=== PATIENT | female | born 1945 | race Caucasian/White ===

== ENCOUNTER → 2018-04-06 15:42 | Outpatient (POV) | payer MEDICARE, SELFPAY | PROVIDERS: Visit Provider Dermatology | DX: Z00.00 Encounter for general adult medical examination without abnormal findings (principal) ==

== ENCOUNTER → 2018-04-06 16:41 | Outpatient (CLI) | payer MEDICARE, SELFPAY ==
--- NOTE | 2018-04-06 16:56 | MM_ITS ---
MM Dig screening mamm BI w/CAD ORDERING PHYSICIAN : Cory Beltran MD PATIENT AGE: 73 years GENDER: Female COMPARISON: February 2017, November 2015, October 2014, November 2013, INDICATION: ITS.REASON: SCREENING. Does taking female hormones. Nonspecific. No new complaints. Noncontributory family history. TECHNIQUE: Standard CC and MLO images were obtained. R2 CAD reviewed. FINDINGS: Moderate residual fibroglandular elements. Stable mild asymmetry. No suspicious or dominant mass. No suspicious calcification. RIGHT BREAST:Stable appearance follow-up in one year. LEFT BREAST:No new findings of significant concern Minor subtle nodularity the deep lateral breast cc view is similar to 2014/2012 mammogram studies. Follow-up in one year recommended IMPRESSION: . No new findings of significant concern.Stable mammogram Bilateral follow-up in one year recommended and encouraged BI-RADS Category: 2 Benign Finding(s) RECOMMENDED FOLLOW-UP: 1YR 1 YEAR FOLLOW-UP (A letter has been sent to the patient regarding results of the study.)
== END ==
PROVIDERS: PCP Family Medicine; Visit Provider Family Medicine
DX: Z12.31 Encounter for screening mammogram for malignant neoplasm of breast (principal)
CPT/HCPCS: 77067

== ENCOUNTER → 2019-04-11 13:07 | Outpatient (CLI) | payer MEDICARE, SELFPAY ==
--- NOTE | 2019-04-11 13:18 | MM_ITS ---
PROCEDURE: MM DIG SCREENING MAMM BI W/CAD CLINICAL INDICATION: SCREENING There is no personal or family history of breast cancer COMPARISON: [facility] DIG MAMM-SCREEN ISAIAH from 11/14/2015 [facility] DIG MAMM-SCREEN ISAIAH W/CAD from 03/05/2017 [facility] MM Dig screening mamm BI w/CAD from 04/06/2018 TECHNIQUE: Standard CC and MLO images were obtained. R2 CAD reviewed. FINDINGS: Scattered diffuse fibroglandular densities are seen throughout both breast. The findings are fairly symmetrical and bilateral. There is no suspicious lesion in either breast and no suspicious microcalcifications. IMPRESSION: Fibrofatty parenchyma with no suspicious lesions seen BI-RAD Category: 1 Negative FOLLOW-UP: 1YR 1 Year Follow-up (A letter has been sent to the patient regarding results of the study.) Dictated by: Dr. Jose Paez MD 04/11/2019 16:[address] Jose Paez MD in [place] 04/11/2019 16:01
== END ==
PROVIDERS: PCP Family Medicine; Visit Provider Family Medicine
DX: Z12.31 Encounter for screening mammogram for malignant neoplasm of breast (principal)
CPT/HCPCS: 77067

== ENCOUNTER → 2019-06-27 13:06 | Outpatient (CLI) | payer MEDICARE, SELFPAY ==
--- NOTE | 2019-06-27 13:15 | XR_ITS ---
PROCEDURE: XR TIBIA FIBULA RT 2V CLINICAL INDICATION: rt leg pain COMPARISON: No exams were available for comparison FINDINGS: There is no acute fracture dislocation or destructive lesion. Lateral compartment osteoarthritis is seen at the knee joint space and there is tibiotalar osteoarthritis. IMPRESSION: No acute findings. Dictated by: Martín Dominique 06/27/2019 16:22 Electronically signed by Martín Dominique in [place] 06/27/2019 16:22
--- NOTE | 2019-06-27 13:15 | XR_ITS ---
PROCEDURE: XR KNEE RT 4V CLINICAL INDICATION: rt leg pain COMPARISON: [id number] KNEE-4 OR 5 VIEWS-RT from 09/16/2016 FINDINGS: No fracture or dislocation. No lytic or blastic change. There is normal mineralization. There is lateral and patellofemoral osteoarthritis with a small suprapatellar joint effusion. Other findings:None. IMPRESSION: Osteoarthritis with joint effusion. Dictated by: Martín Dominique 06/27/2019 16:57 Electronically signed by Martín Dominique in [place] 06/27/2019 16:57
== END ==
PROVIDERS: PCP Family Medicine; Visit Provider Orthopaedic Surgery
DX: M79.661 Pain in right lower leg (principal); M25.561 Pain in right knee
CPT/HCPCS: 73564; 73590

== ENCOUNTER → 2020-10-17 12:34 | Outpatient (CLI) | payer MEDICARE, SELFPAY ==
--- NOTE | 2020-10-17 12:36 | MM_ITS ---
PROCEDURE INFORMATION: Exam: MG Screening 3D Mammography Exam date and time: 10/17/2020 12:36 PM Age: 75 years old Clinical indication: Encounter for screening mammogram for malignant neoplasm of breast TECHNIQUE: Imaging protocol: Screening tomosynthesis and 2D mammography including computer-aided detection (CAD) when performed. COMPARISON: 1. MG MM DIG SCREENING MAMM BI W/CAD 04/11/2019 1:27 PM 2. MG [facility] MM Dig screening mamm BI w/CAD 04/06/2018 4:59 PM FINDINGS: MAMMOGRAPHY: Breast composition: The breast tissue is heterogeneously dense, which may obscure small masses. Mass: Questionable 0.5 cm mass in the middle third of right central breast better seen in the MLO projection Architectural distortion: None. Calcifications: No suspicious calcifications. Asymmetric density: None. Skin thickening: None. Axillary adenopathy: None. IMPRESSION: Patient to be recalled for spot compression views of the right breast in the CC and MLO projections and right breast ultrasound for further evaluation of a right breast mass. ASSESSMENT: BI-RADS Category 0: Incomplete- Need Additional Imaging Evaluation and/or Prior Mammograms for Comparison
--- NOTE | 2020-10-17 12:42 | XR_ITS ---
PROCEDURE: XR CHEST 2V CLINICAL HISTORY: COUGH COMPARISON: No exams were available for comparison FINDINGS: Mild cardiomegaly without failure. The lungs are clear without infiltrates, suspicious nodules, or pleural effusions. There is a small hiatal hernia. No acute bony findings. IMPRESSION: Mild cardiomegaly otherwise negative Dictated by: Pepito Bruner MD 10/17/2020 13:35 Pepito Bruner MD in [place] 10/17/2020 13:35
== END ==
PROVIDERS: PCP Family Medicine; Visit Provider Family Medicine
DX: Z12.31 Encounter for screening mammogram for malignant neoplasm of breast (principal); R05 Cough
CPT/HCPCS: 71046; 77063; 77067

== ENCOUNTER 2020-10-17 13:42 | Outpatient (RCR) | payer MEDICARE, SELFPAY | END 2020-10-17 14:10 | disposition home or self-care (01) | LOC: PT 13:42 | PROVIDERS: Visit Provider Orthopaedic Surgery | DX: M25.561 Pain in right knee (principal) | CPT/HCPCS: 97760 ==

== ENCOUNTER → 2020-11-01 13:41 | Outpatient (CLI) | payer MEDICARE, SELFPAY ==
--- NOTE | 2020-11-01 13:43 | MM_ITS ---
PROCEDURE: MM DIG MAMM DX UNILAT RT CAD Digital Breast Tomosynthesis Included Right breast ultrasound complete with axilla CLINICAL INDICATION: ABN MAMM Breast lesion follow up COMPARISON: MG [facility] DIG MAMM-SCREEN ISAIAH W/CAD from 03/05/2017 [facility] MM Dig screening mamm BI w/CAD from 04/06/2018 MG MM DIG SCREENING MAMM BI W/CAD from 04/11/2019 MG MM DIG SCREENING MAMM BI W/CAD from 10/17/2020 US US BREAST RT COMPLETE from 11/01/2020 TECHNIQUE: Problem solving views of the right breast along with right breast ultrasound FINDINGS: On the MLO view the area of concern appears to compress out. On the CC view there is a small irregular opacity in the central aspect of the right breast posteriorly measuring approximately 3 mm. This could be due to overlapping fibroglandular tissue when comparing to the tomographic images. Right breast ultrasound: At 1 o'clock there is a complex hypoechoic nodule. This is fairly superficial in the mid aspect of the breast. There is however posterior acoustical shadowing. Cannot exclude the possibility of a solid hypoechoic nodule at this region. IMPRESSION: Hypoechoic nodule at 1 o'clock with posterior acoustical shadowing. Suggest ultrasound-guided FNA/core biopsy. The nodules too superficial for mammotome biopsy. Indeterminate findings with a 3 mm somewhat irregular opacity in the central aspect of the right breast possibly due to overlapping fibroglandular tissue. Additional images will be obtained at the time of the FNA. BI-RAD Category: 4 Suspicious Abnormality-Biopsy Considered FOLLOW-UP: BIO Biopsy Recommended (A letter has been sent to the patient regarding results of the study.) Dictated by: Pepito Bruner MD 11/14/2020 09:42 Ppeito Bruner MD in [place] 11/14/2020 09:42
== END ==
PROVIDERS: PCP Family Medicine; Visit Provider Nurse Practitioner Family
DX: R92.8 Other abnormal and inconclusive findings on diagnostic imaging of breast (principal)
CPT/HCPCS: 76641; 77061; 77065; G0279

== ENCOUNTER → 2020-11-08 15:38 | Outpatient (CLI) | payer MEDICARE, SELFPAY | PROVIDERS: PCP Family Medicine; Visit Provider Internal Medicine Cardiovascular Disease | DX: R42 Dizziness and giddiness (principal) | CPT/HCPCS: 93225 ==

== ENCOUNTER → 2020-11-21 13:40 | Outpatient (CLI) | payer MEDICARE, SELFPAY ==
--- NOTE | 2020-11-21 13:41 | XR_ITS ---
PROCEDURE: XR HIP RT 2-3V W/PELVIS CLINICAL INDICATION: right hip pain COMPARISON: No exams were available for comparison FINDINGS: [id number] osteoarthritic changes are present involving the right with decrease in the joint space. No acute fracture or dislocation. Small lucency is noted along the mid aspect of the greater trochanter laterally nonspecific. Mild osteoarthritic changes also noted of the left hip. There are degenerative changes in the lower lumbar spine IMPRESSION: [id number] osteoarthritic changes the right with a nonspecific lucency in the mid aspect of the greater trochanter laterally. Consider 3 month follow-up to confirm stability Dictated by: Pepito Bruner MD 11/21/2020 14:48 Pepito Bruner MD in [place] 11/21/2020 14:48
--- NOTE | 2020-11-21 13:41 | XR_ITS ---
PROCEDURE: XR KNEE RT 4V CLINICAL INDICATION: right knee pain; weightbearing COMPARISON: CR [id number] KNEE-4 OR 5 VIEWS-RT from 09/16/2016 CR XR KNEE RT 4V from 06/27/2019 FINDINGS: No fracture or dislocation. No lytic or blastic change. There is normal mineralization. There are moderate to severe osteoarthritic changes of the lateral compartment which appears somewhat worse compared to 06/27/2019 with slight decrease in the joint space from the previous study. There are mild osteoarthritic changes of the patellofemoral joint and there may be small suprapatellar effusion. Other findings:Minimal osteosclerosis in the epiphysis centrally IMPRESSION: Moderate to severe osteoarthritis of the right knee Dictated by: Pepito Bruner MD 11/21/2020 14:46 Pepito Bruner MD in [place] 11/21/2020 14:46
== END ==
PROVIDERS: PCP Family Medicine; Visit Provider Nurse Practitioner Family
DX: M25.551 Pain in right hip (principal); M25.561 Pain in right knee; R05 Cough
CPT/HCPCS: 73502; 73564; 94060

== ENCOUNTER → 2020-12-05 07:56 | Outpatient (CLI) | payer MEDICARE, SELFPAY ==
--- NOTE | 2020-12-05 07:57 | CA_ITS ---
APPROVED REPORT EXAM: Comprehensive 2D, Doppler, and color-flow Echocardiogram Sweat Band Separator: Cassi Muro CRT Ht: 5 ft 7 in Wt: 230lbs BSA: 2.15 BP: 140/64 mmHg Indications: CP Pt unable to tolerate more images, uncooperative 2D Dimensions LVOT 1.98 cm (M/F) 1.5-2.5 M-Mode Dimensions RVDd 2.58 cm (0.9-2.6) LA Diam 2.80 cm (1.9-4.0) LVDd 4.05 cm (3.5-5.7) Ao Diam 3.37 cm (2.0-3.7) LVDs 2.83 cm (3.5-5.7) IVSd 1.72 cm (0.6-1.1) PWd 0.90 cm (0.6-1.1) EF (Teich) 58.00% FS 30.10% EDV (Teich) 72.10 mL ESV (Teich) 30.30 mL LV Diastology E Decel Time 193.00 (160-240 msec) E/A Ratio 1.17 Aortic Valve AO Peak GR. 6.20 mmHg Mitral Valve MV E Max Hang. 78.00 (40-130 cm/s) MV A Velocity 66.00 (40-130 cm/s) E/A Ratio 1.17 MV Decel. Time 193.00 (160-240 ms) MV PHT 57.00 ms Pulmonary Valve PV Peak Velocity 90.00 (50-150 cm/s) Tricuspid Valve TR P. Velocity 258.00 cm/s Left Ventricle Left atrium is normal size, left ventricle is normal size, left ventricular wall thickness is upper limit of the normal, there is preserved left ventricular systolic function, visually estimated ejection fraction 55% with no regional wall motion abnormality, diastolic parameters are inconclusive. Right Ventricle Right atrium and right ventricle are normal size and contractility. Aortic Valve Aortic valve is minimally thickened and fibrosed, there is no aortic stenosis or aortic insufficiency. Mitral Valve Mitral valve is grossly normal, there is trace mitral regurgitation. Tricuspid Valve Tricuspid grossly normal, there is trace tricuspid regurgitation, calculated right ventricular systolic pressure is within normal range. Pulmonic Valve Pulmonic valve is poorly visualized. Great Vessels Aortic root is normal size. Pericardium No significant pericardial effusion noted. Conclusion 1. Normal left ventricular size, preserved left ventricular systolic function, visually estimated ejection fraction 55% with no regional wall motion abnormality, diastolic parameters are inconclusive. 2. Trace mitral and tricuspid regurgitation. 3. No significant pericardial effusion noted. Electronically signed by : Hamzah Jimenez, 12/07/2020 10:27:05
--- NOTE | 2020-12-05 09:04 | CT_ITS ---
PROCEDURE: CT CHEST WO CON CLINICAL INDICATION: cough Productive cough x several weeks No prior COMPARISON: CT NECKW CT SOFT TISSUE NECK W/CONTRAST from 10/29/2016 TECHNIQUE: Axial images obtained with sagittal and coronal reformats. All CT scans at the facility use one or more dose reduction, viz: automated exposure control, ma/kV adjustment per patient size (including targeted exams where dose is matched to indication, i.e. head), or iterative reconstruction technique. FINDINGS: HEART AND MEDIASTINAL STRUCTURES: The left lobe of the thyroid gland is enlarged with some heterogeneous density and central coarse calcification. The left lobe measures 4.4 cm cephalad caudad and 2.2 cm transverse. The trachea is slightly deviated toward the right. There are coronary artery calcifications. There is a 15 mm soft tissue density along the superior aspect of the left atrium on the left. This may represent an overlying lymph node. Follow-up may confirm stability. There is a moderate-sized hiatal hernia. LUNGS AND PLEURAL SPACES: Minimal atelectatic or fibrotic changes are present in the right lung base posteriorly and medially. A well-circumscribed 9 mm nodular opacity is present in the right lung base along the hemidiaphragm and may be due to small lymph node along the pleura. No lobar consolidation or collapse is evident. No areas of pneumonia parent. BONY STRUCTURES: Mild thoracic scoliosis convex left with degenerative changes in the thoracic spine. UPPER ABDOMEN: Unremarkable. ADDITIONAL FINDINGS: No other significant abnormalities. IMPRESSION: 1. Enlarged left lobe of the thyroid gland not significantly changed from 10/29/2016. 2. Area of nodularity along the left atrium superiorly on the left and may represent a variation of a prominent atrial appendage. Follow-up may confirm stability. 3. No acute finding. 4. Moderate-sized hiatal hernia Dictated by: Pepito Bruner MD 12/06/2020 08:31 Pepito Bruner MD in [place] 12/06/2020 08:31
--- NOTE | 2020-12-05 09:08 | US_ITS ---
PROCEDURE: US FNA BREAST CLINICAL INDICATION: ABN MAMM Right breast nodule COMPARISON: US US BREAST RT COMPLETE from 11/01/2020 MG MM DIG MAMM DX UNILAT RT CAD from 12/05/2020 FINDINGS: Following obtaining informed consent and time-out procedure with ultrasound guidance under aseptic conditions and local anesthesia with 1 percent buffered lidocaine 21 gauge needle was inserted into the subcutaneous nodule in the 1 o'clock region of the right breast. Nodule did aspirate nearly completely. The patient tolerated the procedure well without evidence of immediate complication. Cytology: Atypical, atypical ductal groups. Additional sampling recommended by the pathologist. IMPRESSION: Uneventful ultrasound-guided FNA of the right breast at the 1 o'clock position. The nodule did aspirate. However, the cytology was atypical and the pathologist recommended additional sampling.. The nodule however did aspirate nearly completely and would not be visible at this time. Suggest 3 month sonographic follow-up. If the nodule recurs then additional sampling could be performed. Dictated by: Pepito Bruner MD 12/17/2020 13:23 Pepito Bruner MD in [place] 12/17/2020 13:23
--- NOTE | 2020-12-05 10:21 | MM_ITS ---
PROCEDURE: MM DIG MAMM DX UNILAT RT CAD CLINICAL INDICATION: PRE BX IMAGES PER DR BRUNER COMPARISON: MG MM DIG SCREENING MAMM BI W/CAD from 04/11/2019 MG MM DIG SCREENING MAMM BI W/CAD from 10/17/2020 MG MM DIG MAMM DX UNILAT RT CAD from 11/01/2020 US US BREAST RT COMPLETE from 11/01/2020 US US FNA BREAST from 12/05/2020 TECHNIQUE: Problem solving views performed FINDINGS: Average fibroglandular tissue. The small irregular opacity in the right breast as seen on the CC view is not re duplicated on the spot compression and rolled views nor is it identified on the mL view consistent with overlapping fibroglandular tissue. IMPRESSION: Small asymmetry appears to represent fibroglandular tissue. Continued follow-up suggested. BI-RAD Category: 3 Probably Benign Finding Short Term Follow-Up FOLLOW-UP: 6M 6 Month Follow-up This BI-RADS category pertains to the asymmetric density. Please see ultrasound-guided fine needle aspiration report for further follow-up recommendations regarding the nodule that was biopsied by ultrasound guidance. (A letter has been sent to the patient regarding results of the study.) Dictated by: Pepito Bruner MD 12/12/2020 08:50 Pepito Bruner MD in [place] 12/12/2020 08:50
== END ==
PROVIDERS: PCP Family Medicine; Visit Provider Nurse Practitioner Family
DX: I45.10 Unspecified right bundle-branch block (principal); R05 Cough; R06.00 Dyspnea, unspecified; R07.89 Other chest pain; R42 Dizziness and giddiness; R94.31 Abnormal electrocardiogram [ECG] [EKG]; R92.8 Other abnormal and inconclusive findings on diagnostic imaging of breast
CPT/HCPCS: 10005; 71250; 77061; 77065; 88173; 93306; G0279

== ENCOUNTER → 2020-12-12 14:27 | Outpatient (CLI) | payer MEDICARE, SELFPAY | PROVIDERS: Visit Provider Internal Medicine Gastroenterology | DX: Z01.812 Encounter for preprocedural laboratory examination (principal); Z20.822 Contact with and (suspected) exposure to COVID-19; Z13.810 Encounter for screening for upper gastrointestinal disorder; Z12.11 Encounter for screening for malignant neoplasm of colon | CPT/HCPCS: U0003 ==

== ENCOUNTER 2020-12-14 10:48 | Day surgery (SDC) | payer MEDICARE, SELFPAY ==
[2020-12-11 13:35] VITALS: BMI 36.0
[2020-12-14 11:19] VITALS: BP 104/64; PULSE 85; RESP 20; TEMP 37.6; O2SAT 97
--- NOTE | 2020-12-14 12:38 | HMH.ANESCL ---
[facility] Anesthesia Checklist - Patient Identification Patient Identification: Arm Band - Structural Data Admitted From: Home Planned Operative Procedure/s: egd/colonoscopy Consent for Planned Operative Procedure(s) Verified: Yes Verified Documents: Surgical Consent, History and Physical - NPO Status Verified Time NPO: 00:00 - Additional verifications Anesthesia Reactions: No - Airway Assessment C-Spine Mobility Assessed: Yes (mp2) TMJ Mobility Assessed: Yes Dentition: Good Dentition - Neurological Assessment Level of Consciousness: Awake, Alert - Anesthesia Plan Anesthesia Risk discussed: Yes Anesthesia Plan: Verified ASA Class: III Anesthesia Type: MAC [facility] History I have reviewed the patient's past medical history: Yes Medical History: Reports:: Anxiety, Hyperlipidemia, Hypertension Denies:: Cancer, Diabetes Mellitus Type 1, Diabetes Mellitus Type 2, Internal Pacemaker, MRSA, Seizures *Have you ever received a pneumonia vaccine?: No *Have you received a flu vaccine this season?: No Anesthesia experience/problems:: nac Other Surgeries: Yes: Other. No: Pacemaker Amputation: No Fractures: No - *Social History Smoking Status: Never smoker Alcohol Intake: never Substance Use Type: denies use *Occupational Status:: retired Housing: house *Travel in the last 8 weeks: None - Psychiatric History Pschychiatric History:: Reports:: Anxiety Family Hx:: Coronary Artery Disease, Hypertension
--- NOTE | 2020-12-14 12:57 | P.PCN_ITS ---
[facility] Procedure Note Procedure Note:: Upper Endoscopy Procedure Report: Esophagogastroduodenoscopy with cold biopsies Endoscopost: Darell Martinez II, MD Referring Physician: JUANY Latham Date of Procedure: 12/14/2020 Equipment: Olympus GIF 190 standard upper endoscope Sedation: MAC sedation Indications: Mrs. Katz is a 75-year-old female who is here for diagnostic panendoscopy. The patient does state that she was having coughing and spitting up earlier this year that began in July or August. She was having some symptoms of GERD and dyspepsia. She was having gnawing in the mid upper abdomen. The patient reports no dysphagia or weight loss. Her symptoms improved with omeprazole. This is her first upper endoscopy. Her recent chemistries were normal. Procedure: Prior to the procedure, a history and physical exam was performed, and patient's medications and allergies were reviewed. The risks, benefits and alternatives of the sedation and procedure were discussed with the patient. All questions were answered and informed consent was obtained. The patient was brought to the procedure room. Patient identification and proposed procedure were verified by the physician and the nurse. The patient was placed in a left lateral decubitus position and the scope was passed under direct vision. Throughout the procedure , the patient's blood pressure, pulse, and oxygen saturations were monitored continuously. The upper GI endoscopy was accomplished without difficulty. The patient tolerated the procedure well. Findings: The scope was passed directly into the upper esophagus and advanced to the third portion of the duodenum. The post bulbar duodenum and duodenal bulb were normal with normal mucosa and conniventes. The scope was withdrawn through a normal duodenal bulb and pylorus into the stomach. There was some very mild chronic gastritis of the body and fundus. Cold biopsies were taken along the lesser curvature. The scope was retroflexed and there was a large 6 to 7 cm hiatal hernia. 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 The diaphragmatic hiatus was at 41 cm. The gastroesophageal junction and Z-line were at 34 cm. The scope was then withdrawn into the esophagus. There was no evidence of reflux esophagitis. Biopsies were obtained at the GE junction. There were tertiary contractions and evidence of moderate esophageal dysmotility. The remainder of the esophageal mucosa was normal. Impression: 1. Nonerosive GERD with moderate esophageal dysmotility and large 6 to 7 cm hiatal hernia 2. Mild chronic gastritis?rule out H. pylori Plan: I will follow-up the biopsies. I would like to see her hemoglobin/hematocrit and iron studies to make sure that she does not have iron deficiency anemia from Conrelio's erosions. I do feel that she has chronic GERD which resulted in some of her symptoms of coughing. She is much improved with omeprazole. I will proceed with colonoscopy.
--- NOTE | 2020-12-14 13:20 | HMH.PROC ---
[facility] Procedure Note Procedure Note:: Colonoscopy Procedure Report: Colonoscopy with cold snare polypectomy Endoscopist: Darell Martinez II, MD Referring physician: JUANY Latham Date of Procedure: December 14, 2020 Equipment: Olympus 190 variable stiffness pediatric colonoscope Sedation: MAC sedation Indication: Mrs. Katz is a 75-year-old female who is here for screening/surveillance colonoscopy. She did have a colonoscopy in 2011 and had a single polyp removed. She did have a colonoscopy with ct nearly 20 years ago. She reports no abdominal pain, weight loss, change in her bowel habits or rectal bleeding. She does have some intermittent diarrhea. She reports no family history of colon cancer. Procedure: Prior to the procedure, a history and physical exam was performed, and patient's medications and allergies were reviewed. The risks, benefits and alternatives of the sedation and procedure were discussed with the patient. All questions were answered and informed consent was obtained. The patient was brought to the procedure room. Patient identification and proposed procedure were verified by the physician and the nurse. The patient was placed in a left lateral decubitus position and the scope was passed under direct vision. Throughout the procedure, the patient's blood pressure, pulse, and oxygen saturations were monitored continuously. The colonoscopy was accomplished without difficulty. The patient tolerated the procedure well. Findings: On digital rectal examination there was normal rectal tone. There were no external hemorrhoids. The colonoscope was introduced through the anal canal to the rectum and advanced to the cecum. The ileocecal valve and appendiceal orifice were identified. The scope was advanced a short distance into the ileum which appeared grossly normal. The scope was then withdrawn into the colon. The cecum, ascending and transverse colon and mucosa were grossly normal. There was a single 5 mm polyp in the descending colon removed via cold snare polypectomy. There were extensive scattered diverticuli throughout the descending and sigmoid colon (LEFT colon). The rectum itself was normal. Upon retroflexion within the rectum there were grade 1-2 internal hemorrhoids. The preparation was excellent throughout with [place] Preparation Score of 9. The cecal time was 12 minutes. Impression: 1. Diminutive descending colon polyp 2. Left-sided diverticulosis 3. Grade 1-2 internal hemorrhoids Plan: I will follow up the polyp histology. I am not convinced that the patient will require any further preventive colonoscopy. I would encourage bulking fiber supplementation on a long-term daily maintenance basis.
[2020-12-14 13:23] VITALS: BP 104/52; PULSE 76; RESP 18; TEMP 36.7; O2SAT 92
[2020-12-14 13:33] VITALS: BP 103/70; PULSE 68; RESP 18; O2SAT 96
[2020-12-14 13:43] VITALS: BP 90/61; PULSE 63; RESP 18; O2SAT 96
[2020-12-14 14:24] VITALS: BP 125/60; PULSE 68; RESP 18; O2SAT 97
== END 2020-12-14 14:30 | disposition home or self-care (01) ==
LOC: OUTP 10:49
PROVIDERS: PCP Nurse Practitioner Family; Visit Provider Internal Medicine Gastroenterology
PROC: 0DJ08ZZ Inspection of Upper Intestinal Tract, Via Natural or Artificial Opening Endoscopic (ICD-10-PCS; CPT 43235; principal; 2020-12-14 12:00)
DX: Z12.11 Encounter for screening for malignant neoplasm of colon (principal); K63.5 Polyp of colon; K57.30 Diverticulosis of large intestine without perforation or abscess without bleeding; K64.0 First degree hemorrhoids; K21.9 Gastro-esophageal reflux disease without esophagitis; K22.4 Dyskinesia of esophagus; K44.9 Diaphragmatic hernia without obstruction or gangrene; K29.50 Unspecified chronic gastritis without bleeding; I10 Essential (primary) hypertension; E78.5 Hyperlipidemia, unspecified; F41.9 Anxiety disorder, unspecified; Z82.49 Family history of ischemic heart disease and other diseases of the circulatory system
CPT/HCPCS: 43239; 45385; 88305

== ENCOUNTER → 2021-03-08 13:17 | Outpatient (POV) | payer MEDICARE, SELFPAY ==
[2021-03-08 13:30] VITALS: BP 145/76; PULSE 88; RESP 20; TEMP 36.2; O2SAT 95; BMI 35.2
--- NOTE | 2021-03-08 13:48 | HMH.PMCON ---
Assessment and Plan (1) Degenerative joint disease (DJD) of lumbar spine Status: Acute Category: Medical Code(s): M47.816 - Spondylosis without myelopathy or radiculopathy, lumbar region (2) Scoliosis Status: Acute Category: Medical Code(s): M41.9 - Scoliosis, unspecified - Assessment and plan all Dx Assessment and Plan for all problems:: We will seek approval for lumbar epidural steroid injection under fluoroscopy. We will also seek approval for a lumbar MRI to discern any changes since her last lumbar MRI which was several years ago. HPI - Data of Consult Patient: new to practice Consult date: 03/08/21 Requesting Physician: Ángel Dwyer MD Primary Care Provider: Cristel Morales APRN - Consult Narrative Reason for consult: Low back pain History of present illness: Ms. Katz is a 76 year old female who presents today with increasing low back pain. She has had increasing back pain over the last several years. She has not had any recent MRI. She has been undergoing conservative treatments with nonsteroidal anti-inflammatories and home exercise. She has done this for approximately 6 months. Pain score is an 8 out of 10. Most of her pain is in the low back it does not radiate. We will seek approval for a lumbar pleural steroid injection under fluoroscopy and also order an MRI of lumbar spine to discern any changes since her last MRI which was several years ago. CC: Ángel Dwyer MD [facility] History I have reviewed the patient's past medical history: Yes Medical History: Reports:: Anxiety, Hyperlipidemia, Hypertension Denies:: Cancer, Diabetes Mellitus Type 1, Diabetes Mellitus Type 2, Internal Pacemaker, MRSA, Seizures *Have you ever received a pneumonia vaccine?: Yes *Have you received a flu vaccine this season?: Yes Other Medical History: Reports: Arthritis Other Surgeries: Yes: No Previous Surgery, Colonoscopy, Other. No: Pacemaker Amputation: No Fractures: No - *Social History Smoking Status: Never smoker Alcohol Intake: never Substance Use Type: denies use *Occupational Status:: retired Housing: house Household Members: other *Travel in the last 8 weeks: None - Psychiatric History Pschychiatric History:: Reports:: Anxiety Family Hx:: Coronary Artery Disease, Hypertension Review of Systems - Review of Systems Review of systems:: pertinent systems reviewed and negative unless documented below Meds Home Medications Medication Instructions Recorded Confirmed Type amlodipine 5 mg tablet 5 mg PO DAILY tab 11/08/20 02/12/21 History aspirin 81 mg tablet,delayed 81 mg PO DAILY 11/08/20 02/12/21 History release famotidine 40 mg tablet 40 mg PO HS tab 11/08/20 02/12/21 History losartan 100 1 tab PO DAILY tab 11/08/20 02/12/21 History mg-hydrochlorothiazide 25 mg tablet montelukast 10 mg tablet 10 mg PO DAILY tab 11/08/20 02/12/21 History pravastatin 40 mg tablet 40 mg PO DAILY tab 11/08/20 02/12/21 History Omeprazole 40 mg PO DAILY 12/11/20 02/12/21 History Allergies Allergy/AdvReac Type Severity Reaction Status Date / Time No Known Allergies Allergy Verified 02/12/21 15:36 Objective Vital signs: Temp Pulse Resp BP Pulse Ox 97.1 F L 88 20 145/76 H 95 03/08/21 13:30 03/08/21 13:30 03/08/21 13:30 03/08/21 13:30 03/08/21 13:30 - Routine Back/Spine/Pelvis Exam Back/Spine: Present: paraspinal tenderness, vertebral tenderness, scoliosis
== END ==
PROVIDERS: PCP Nurse Practitioner Family; Visit Provider Anesthesiology
DX: M47.816 Spondylosis without myelopathy or radiculopathy, lumbar region (principal); M41.9 Scoliosis, unspecified
CPT/HCPCS: 99202; G0463

== ENCOUNTER 2021-03-15 12:51 | Day surgery (SDC) | payer MEDICARE, SELFPAY ==
[2021-03-15 13:03] VITALS: BP 153/81; PULSE 95; RESP 18; TEMP 36.2; O2SAT 97; BMI 35.2
[2021-03-15 13:16] VITALS: BP 155/82; PULSE 95; RESP 18; O2SAT 98
[2021-03-15 13:19] VITALS: PULSE 96; RESP 18; O2SAT 97
--- NOTE | 2021-03-15 13:29 | HMH.PMPROC ---
- Procedure Date: 03/15/21 Time: 13:29 Anesthesiologist:: Ángel Dwyer MD Complications:: None Pre-procedure Diagnosis:: Degenerative disc disease of lumbar spine with lumbar radiculopathy symptoms with scoliosis Post-procedure Diagnosis:: Same Indications for Procedure:: Patient is a pleasant 76-year-old white female who we are treating for low back pain with lumbar radiculopathy symptoms. She has increasing pain in her back radiating down both legs. She also has scoliosis. We will do lumbar epidural steroid injection under fluoroscopy today to help with her pain symptoms. Procedure Details:: Informed consent was obtained and the risk and benefits of the procedure was explained to the patient. The patient was taken to the procedure room. The patient was placed prone on the procedure table. The patient was prepped and draped in sterile fashion. C-arm fluoroscopy was used to view the lumbar spine. Skin and subcutaneous tissues were anesthetized using lidocaine. I placed an 18-gauge epidural needle and advanced into the L4-L5 interspace using fluoroscopic guidance and [id number] to air. After confirmation of needle placement in the epidural space with dye I injected 2 mL of lidocaine 1.5% with Depo-Medrol 80 mg. Patient tolerated the procedure well with no complications. Plan and Disposition:: We will follow-up with her in 2 weeks. Will reevaluate symptoms at that time.
[2021-03-15 13:49] VITALS: BP 170/67; PULSE 83; RESP 20; O2SAT 94
== END 2021-03-15 13:50 | disposition home or self-care (01) ==
LOC: SC.PAINP 12:52
PROVIDERS: PCP Nurse Practitioner Family; Visit Provider Anesthesiology
DX: M51.16 Intervertebral disc disorders with radiculopathy, lumbar region (principal); M41.9 Scoliosis, unspecified
CPT/HCPCS: 62323; J1040; Q9966

== ENCOUNTER → 2021-03-20 14:33 | Outpatient (CLI) | payer MEDICARE, SELFPAY | PROVIDERS: PCP Nurse Practitioner Family; Visit Provider Anesthesiology | DX: M51.36 Other intervertebral disc degeneration, lumbar region (principal) ==

== ENCOUNTER → 2021-04-30 11:38 | Outpatient (POV) | payer MEDICARE, SELFPAY ==
[2021-04-30 11:56] VITALS: BP 151/92; PULSE 92; RESP 18; O2SAT 95; BMI 35.2
--- NOTE | 2021-05-02 08:17 | HMH.PAINSOAP ---
[facility] Pain Management SOAP Note Subjective:: Patient is a 76-year-old patient who presents today for follow-up. She recently had an epidural steroid injection. Patient says she got 0 relief with the injection. She is continuing to have significant pain. Patient is very tearful today. She does say that she is taking care of her mother who is end of life. She says that she is unable to stand walk or sit for prolonged periods due to the pain. She is very uncomfortable today during the conversation. The pain is sharp and stabbing in nature. The pain does go into bilateral lower extremities. Injections have not helped the patient, physical therapy has been of no benefit to the patient. She has tried home stretching exercises. She is also tried oral medications. She says that she has taken [place] in the past with minimal relief. She rates her pain an 8 or 9 out of 10 today. Review of Systems General: No recent weight changes, no fever, no sleep disturbances Respiratory: No cough, no shortness of air, no recurring pulmonary infections Cardiovascular/peripheral vascular: No chest pain, no palpitations, no edema, no shortness of breath Gastrointestinal: No new onset incontinence, normal bowel movements reported Genitourinary: No new onset incontinence Musculoskeletal: Low back pain with radiation into bilateral lower extremities Psychiatric: [Normal mood/affect] Neurological: [Denies weakness in extremities], [denies balance issues] Objective:: Physical exam General: Alert and oriented x3, no acute distress, pleasant and cooperative Lungs: Respirations even and unlabored, symmetrical chest expansion Eyes: PERRL Musculoskeletal: Flexion and extension of lumbar [spine] somewhat guarded secondary to pain, [antalgic gait noted] Neurological: Speech clear, no gross sensory deficit Assessment:: Degenerative disc disease lumbar spine with lumbar radiculopathy symptoms Plan:: We will order the patient tramadol 50 mg 1 tablet p.o. 3 times daily. She would like to postpone any further injective therapy at this time. She has got minimal relief. We have discussed implanted devices?spinal cord stimulation as an option for the patient in the future. She would like to consider. We will give her a month medication and plan to see her back in the clinic in 1 month. We will reevaluate for possible spinal cord stimulation at that time. She would like to postpone any procedures at this time due to her mother's terminal condition. Risks and benefits of the medication have been explained in detail to the patient. The patient does understand the risk of dependence on the medication when given over a prolonged period. Patient has been advised of risks of oversedation with the prescribed medication. Narcan has been offered to the paitent in the event of oversedation. Patient has been advised that a family member should also be educated regarding administration of Narcan. The patient has been advised to consult with his/her primary care provider and pharmacist regarding drug-drug interaction of medications currently prescribed. Patient has been prescribed a controlled substance after being counseled on the medication, medication safety, and possible side effects. [place] report has been obtained and reviewed prior to prescription and found to be appropriate. Opioid contract was reviewed and signed by the patient, and that they have agreed to all of the terms set forth by our compliance program. Patient has been instructed to contact the clinic with any concerns before the next appointment. Dr. Dwyer has reviewed this note and agrees with this plan of care. This note was dictated using voice recognition software and make contain errors or omissions. [facility] History I have reviewed the patient's past medical history: Yes Medical History: Reports:: Anxiety, Hyperlipidemia, Hypertension Denies:: Cancer, Diabetes Mellitus Type 1, Diabete
== END ==
PROVIDERS: Visit Provider Clinical Nurse Specialist Family Health
DX: M51.16 Intervertebral disc disorders with radiculopathy, lumbar region (principal)
CPT/HCPCS: 99212; G0463

== ENCOUNTER 2021-06-25 15:02 | Outpatient (RCR) | payer MEDICARE, SELFPAY | END 2021-06-25 15:57 | disposition home or self-care (01) | LOC: PT 15:02 | PROVIDERS: Visit Provider Orthopaedic Surgery | DX: M25.561 Pain in right knee (principal) | CPT/HCPCS: 97760 ==

== ENCOUNTER → 2021-09-24 12:54 | Outpatient (CLI) | payer MEDICARE, SELFPAY ==
--- NOTE | 2021-09-24 13:05 | CT_ITS ---
FINAL REPORT CLINICAL HISTORY: SEVERE DIZZINESS FINDINGS: Axial images of the head were obtained without contrast. Coronal reformatted images were also obtained.This study was performed with techniques to keep radiation doses as low as reasonably achievable (ALARA). Individualized dose reduction techniques using automated exposure control or adjustment of mA and/or kV according to the patient's size were employed. There is no evidence of intracranial hemorrhage or mass. The ventricular size is within normal limits. There is no evidence of shift of the midline structures. No abnormal extra axial fluid collection is identified. No skull abnormality is seen on the bone window images. IMPRESSION: No acute intracranial abnormality. Reviewed, Interpreted and Dictated by Teddy Brady III, MD Transcribed by Jeferson Franz Authenticated by Teddy Brady III, MD on 09/24/2021 03:19:33 PM [facility]
== END ==
PROVIDERS: PCP Nurse Practitioner Family; Visit Provider Nurse Practitioner Family
DX: R42 Dizziness and giddiness (principal)
CPT/HCPCS: 70450

== ENCOUNTER → 2021-11-21 14:50 | Outpatient (CLI) | payer MEDICARE, SELFPAY ==
--- NOTE | 2021-11-21 | US_ITS ---
FINAL REPORT CLINICAL HISTORY: .thyroid nodules FINDINGS: Sonographic images of the thyroid were obtained. The right lobe of the thyroid measures 4.2 x 1.8 x 1.7 cm. The left lobe of the thyroid measures 5.4 x 3.0 by 2.5 cm. Multiple bilateral thyroid nodules are identified. Individual nodules on the right are all subcentimeter in size and hypoechoic. There is a solid nodule in the mid left thyroid lobe measuring 1.3 cm consistent with TI-RADS category 4. There is a complex cystic mass in the left lobe measuring 1.9 x 1.5 cm consistent with TI-RADS category 3. IMPRESSION: Left thyroid nodules as detailed above. Recommend follow-up in 1 year. Reviewed, Interpreted and Dictated by Mark Husain MD Transcribed by Raegan Hewitt Authenticated and . [facility]
--- NOTE | 2021-11-21 14:55 | MM_ITS ---
PROCEDURE INFORMATION: Exam: MG Bilateral Screening 3D Mammography Exam date and time: 11/21/2021 3:15 PM Age: 76 years old Clinical indication: Screening examination TECHNIQUE: Imaging protocol: Bilateral Screening tomosynthesis and 2D mammography including computer-aided detection (CAD) when performed. COMPARISON: 1. MG MM DIG MAMM DX UNILAT RT CAD 12/05/2020 10:23 AM 2. MG MM DIG MAMM DX UNILAT RT CAD 11/01/2020 1:57 PM FINDINGS: MAMMOGRAPHY: Breast composition: There are scattered areas of fibroglandular density. Mass: None. Architectural distortion: None. Calcifications: No suspicious calcifications. Asymmetric density: None. Skin thickening: None. Axillary adenopathy: None. IMPRESSION: No mammographic evidence of malignancy. Annual screening is recommended unless otherwise clinically indicated. ASSESSMENT: BI-RADS Category 1: Negative
== END ==
PROVIDERS: PCP Nurse Practitioner Family; Visit Provider Nurse Practitioner Family
DX: Z12.31 Encounter for screening mammogram for malignant neoplasm of breast (principal); E04.1 Nontoxic single thyroid nodule
CPT/HCPCS: 76536; 77063; 77067

== ENCOUNTER → 2021-12-03 13:57 | Outpatient (CLI) | payer MEDICARE, SELFPAY ==
--- NOTE | 2021-12-03 14:02 | XR_ITS ---
FINAL REPORT CLINICAL HISTORY: knee pain COMPARISON: November 21, 2020 FINDINGS: RIGHT KNEE: Four views of the right knee obtained. There is no acute fracture or dislocation. There is degenerative joint disease most pronounced in the lateral compartment which has progressed since 2020. There is a small joint effusion. IMPRESSION: Worsening degenerative joint disease. Small joint effusion. Reviewed, Interpreted and Dictated by Kiana Renteria MD Transcribed by Karla King Authenticated and [facility]
== END ==
PROVIDERS: PCP Nurse Practitioner Family; Visit Provider Orthopaedic Surgery
DX: M25.561 Pain in right knee (principal)
CPT/HCPCS: 73564

== ENCOUNTER → 2021-12-03 15:43 | Outpatient (CLI) | payer MEDICARE, SELFPAY ==
--- NOTE | 2021-12-03 15:49 | XR_ITS ---
FINAL REPORT CLINICAL HISTORY: SOB COMPARISON: October 17, 2020 FINDINGS: PA and lateral views of the chest were obtained. The heart size is normal. There is a retrocardiac opacity with air consistent with a large hiatal hernia. The lungs are clear. There is no pleural effusion or pneumothorax. No acute osseous abnormality is identified. IMPRESSION: No radiographic evidence of acute cardiac or pulmonary disease. Reviewed, Interpreted and Dictated by Kiana Renteria MD Transcribed by Jeferson Franz Authenticated and [facility]
== END ==
PROVIDERS: PCP Nurse Practitioner Family; Visit Provider Nurse Practitioner Family
DX: R06.02 Shortness of breath (principal)
CPT/HCPCS: 71046; 73564

== ENCOUNTER → 2022-02-07 15:05 | Outpatient (CLI) | payer MEDICARE, SELFPAY ==
[2022-02-07 16:20] VITALS: PULSE 64; PULSE 68
== END ==
PROVIDERS: PCP Nurse Practitioner Family; Visit Provider Internal Medicine Pulmonary Disease
DX: R06.00 Dyspnea, unspecified (principal); R05.3 Chronic cough; J45.40 Moderate persistent asthma, uncomplicated
CPT/HCPCS: 94060; 94640

== ENCOUNTER → 2022-11-25 13:22 | Outpatient (CLI) | payer MEDICARE, SELFPAY ==
--- NOTE | 2022-11-25 13:26 | MM_ITS ---
PROCEDURE INFORMATION: Exam: MG Bilateral Screening 3D Mammography Exam date and time: 11/25/2022 1:23 PM Age: 77 years old Clinical indication: Screening. No family history of breast cancer. TECHNIQUE: Imaging protocol: Bilateral Screening tomosynthesis and 2D mammography including computer-aided detection (CAD) when performed. Limited positioning related to mobility impairment. Exam performed in chair. COMPARISON: 1. MG MM DIG SCREENING MAMM BI W/CAD 11/21/2021 3:15 PM 2. MG MM DIG MAMM DX UNILAT RT CAD 12/05/2020 10:23 AM 3. MG MM DIG MAMM DX UNILAT RT CAD 11/01/2020 1:57 PM 4. MG MM DIG SCREENING MAMM BI W/CAD 10/17/2020 1:01 PM FINDINGS: MAMMOGRAPHY: Breast composition: There are scattered areas of fibroglandular density. Mass: No suspicious mass. Architectural distortion: None. Calcifications: No suspicious calcifications. Asymmetric density: None. Skin thickening: None. Axillary adenopathy: None. IMPRESSION: No mammographic evidence of malignancy. Annual screening is recommended unless otherwise clinically indicated. There are scattered areas of fibroglandular density. . ASSESSMENT: BI-RADS Category 1: Negative
== END ==
PROVIDERS: PCP Nurse Practitioner Family; Visit Provider Nurse Practitioner Family
DX: Z12.31 Encounter for screening mammogram for malignant neoplasm of breast (principal)
CPT/HCPCS: 77063; 77067

== ENCOUNTER → 2022-12-15 09:18 | Outpatient (CLI) | payer MEDICARE, SELFPAY ==
--- NOTE | 2022-12-15 09:22 | XR_ITS ---
FINAL REPORT CLINICAL HISTORY: osteoporosis COMPARISON: None FINDINGS: Using L1-4, the bone mineral density of the spine is 1.302 g/cm2, corresponding to T-score of 2.3 which is within normal limits. Using the left hip, the bone mineral density of the femoral neck is 1.007 g/cm2, corresponding to a T-score of 0.5 which is within normal limits. Using the right hip, the bone mineral density of the femoral neck is 0.813 g/cm2, corresponding to a T-score of -0.3 which is within normal limits. FRAX not reported because all T-scores at or above -1.0. NOTE: T-score: Standard deviation compared with peak bone mass of young adult mean. *Following the recommendations of the International Society of Bone densitometry, classification of hip BMD is based on the lower of two T-scores; total hip or femoral neck. IMPRESSION: Normal bone mineral density of the lumbar spine and hips. Reviewed, Interpreted and Dictated by Teddy Brady III, MD Transcribed by Alma Frost Authenticated and [facility]
== END ==
PROVIDERS: PCP Nurse Practitioner Family; Visit Provider Nurse Practitioner Family
DX: Z13.820 Encounter for screening for osteoporosis (principal); Z78.0 Asymptomatic menopausal state
CPT/HCPCS: 77080

== ENCOUNTER → 2023-01-02 13:39 | Outpatient (CLI) | payer MEDICARE, SELFPAY ==
--- NOTE | 2023-01-02 13:39 | US_ITS ---
FINAL REPORT TECHNIQUE: Real-time grayscale and color ultrasound of the thyroid was performed. CLINICAL HISTORY: thyroid nodule COMPARISON: 11/21/2021 FINDINGS: The thyroid gland measures 43 mm on the right and 57 mm on the left. The isthmus measures 5 mm. Right upper lobe 0.9 cm solid TR 3 nodule. Right 1.1 cm predominantly cystic lesion. Left lobe of the thyroid is heterogeneous and contains several small cystic areas. Discrete nodule in the left lobe is difficult to identify. IMPRESSION: Right TR 3 nodule and bilateral cystic lesions. Findings are all believed to be related to multinodular goiter. Follow-up in 1 year. Reviewed, Interpreted and Dictated by Mark Husain MD Transcribed by Alma Frost Authenticated and [facility]
[2023-01-02 17:18] LABS: Free T4 (Free Thyroxine) 0.96 ng/dl (0.78-2.19)
== END ==
PROVIDERS: PCP Nurse Practitioner Family; Visit Provider Nurse Practitioner
DX: R06.09 Other forms of dyspnea; E04.1 Nontoxic single thyroid nodule
CPT/HCPCS: 36415; 76536; 84439; 84443

== ENCOUNTER → 2023-01-16 14:37 | Outpatient (CLI) | payer MEDICARE, SELFPAY ==
--- NOTE | 2023-01-16 14:44 | XR_ITS ---
FINAL REPORT CLINICAL HISTORY: left shoulder pain, decreased ROM COMPARISON: None FINDINGS: LEFT SHOULDER: 3 views of the left shoulder were obtained. There is no acute fracture or dislocation. Mild acromioclavicular and mild glenohumeral joint degenerative changes. There is no soft tissue abnormality. IMPRESSION: Mild degenerative changes without acute bony abnormality. Reviewed, Interpreted and Dictated by Teddy Brady III, MD Transcribed by Alma Frost Authenticated and [facility]
[2023-01-16 17:36] LABS: Uric Acid 6.2 mg/dl (2.5-6.2)
[2023-01-16 17:47] LABS: Erythrocyte Sedimentation Rate 22 mm/hr (0-30)
[2023-01-18 12:50] LABS: RA Latex Turbid. <10.0 IU/mL (<14.0)
[2023-01-26 12:10] LABS: Antinuclear Antibodies, IFA Positive
== END ==
PROVIDERS: PCP Nurse Practitioner Family; Visit Provider Nurse Practitioner Family
DX: M25.512 Pain in left shoulder (principal); M25.612 Stiffness of left shoulder, not elsewhere classified; M25.50 Pain in unspecified joint
CPT/HCPCS: 73030; 84550; 85651; 86038; 86431

== ENCOUNTER → 2023-01-16 23:14 | Outpatient (CLI) | payer MEDICARE, SELFPAY | PROVIDERS: PCP Nurse Practitioner Family; Visit Provider Nurse Practitioner Family | DX: M25.50 Pain in unspecified joint (principal) ==

== ENCOUNTER → 2023-01-22 14:26 | Outpatient (POV) | payer MEDICARE, SELFPAY | PROVIDERS: Visit Provider Specialist/Technologist | DX: Z00.00 Encounter for general adult medical examination without abnormal findings (principal) ==

== ENCOUNTER → 2023-02-05 11:39 | Outpatient (POV) | payer MEDICARE, SELFPAY ==
--- NOTE | 2023-02-05 11:49 | EXP.PAIN.OV ---
HPI Data of Consult Patient: known to practice within the last 3 years Consult date: 02/05/23 Requesting Physician: Susan Rodarte APRN Primary Care Provider: Cristel Morales APRN Consult Narrative Reason for consult: Chronic back pain History of present illness: Ms. Katz is a 78 year old female presents today as a new patient. Patient was previously a patient in our clinic back in 2020 and has not been back since. At that time we were treating her for chronic low back pain however her mother was at end-of-life and she was caring for her. She does state that her pain today is a 10 out of 10 and it is all in her back. Patient denies any radiating symptoms into her legs. Patient does describe this as an aching, throbbing sensation that is worse with increased activity. Patient does state it interferes with her ability perform activities of daily living such as cooking and cleaning. Patient states she frequently cannot stand or walk for long periods of time due to her worsening back pain and that she has to sit and take multiple breaks. Patient has tried [id number] Tylenol and ibuprofen along with tramadol in the past with minimal relief. Patient is currently managed with tramadol however she states she only takes it 2-3 times per week and does not really notice much improvement. Patient has also tried heat and ice and topicals along with multiple injections with minimal relief. Patient does state that initially the injections did help however over time these became less and less effective. Patient has tried physical therapy and at home exercising and stretching for longer than 12 weeks with no additional relief. Patient denies any recent imaging. CC: Susan Rodarte APRN [facility] Disclaimer: The information contained in this section may have been updated after the patient was seen, as this information can be updated by other users. Medical History Abnormal electrocardiography Allergic rhinitis, unspecified Chronic cough Cough Dizziness Dyspnea Dyspnea on exertion Hearing loss Moderate persistent asthma Osteoarthritis of right knee Right bundle branch block Thyroid Nodule Thyromegaly Tinnitus Surgical History History of right knee joint replacement Family History Other Coronary artery disease Hypertension Social History Smoking Status: Never smoker alcohol intake: never substance use type: denies use current occupational status: retired Travel in the last 8 weeks: None household members: other housing: house current occupational exposures/hazards: No caffeine: Yes Review of Systems Review of Systems Review of systems:: pertinent systems reviewed and negative unless documented below Review of systems (narrative): Review of Systems: General: No recent weight changes, no fever, no sleep disturbances Respiratory: No cough, no shortness of air, no recurring pulmonary infections Cardiovascular/peripheral vascular: No chest pain, no palpitations, no edema, no shortness of breath Gastrointestinal: No new onset incontinence, normal bowel movements reported Genitourinary: No new onset incontinence Musculoskeletal: Low back pain Psychiatric: [Normal mood/affect] Neurological: [Denies weakness in extremities], [denies balance issues] Meds Home Medications and Allergies Home Medications Medication Instructions Recorded Confirmed Type amlodipine 5 mg tablet 5 mg PO DAILY bp 11/08/20 02/05/23 History aspirin 81 mg tablet,delayed 81 mg PO DAILY heart health 11/08/20 02/05/23 History release (Adult Low Dose Aspirin) famotidine 40 mg tablet 40 mg PO HS stomach 11/08/20 02/05/23 History losartan 100 1 tab PO DAILY bp 11/08/20 02/05/23 History mg-hydrochlorothiazide 25 mg tablet
[2023-02-05 11:51] VITALS: BP 126/63; PULSE 83; RESP 18; O2SAT 96; BMI 32.1
== END ==
PROVIDERS: PCP Nurse Practitioner Family; Visit Provider Nurse Practitioner Family
DX: M54.50 Low back pain, unspecified (principal); M47.816 Spondylosis without myelopathy or radiculopathy, lumbar region; G89.4 Chronic pain syndrome
CPT/HCPCS: 99202; G0463

== ENCOUNTER → 2023-03-10 14:20 | Outpatient (CLI) | payer MEDICARE, SELFPAY ==
[2023-03-12 13:45] LABS: Antinuclear Antibodies (ANA) Negative
== END ==
PROVIDERS: PCP Nurse Practitioner Family; Visit Provider Nurse Practitioner Family
DX: M25.50 Pain in unspecified joint (principal)
CPT/HCPCS: 86038

== ENCOUNTER → 2023-04-22 15:06 | Outpatient (CLI) | payer MEDICARE, SELFPAY ==
--- NOTE | 2023-04-22 15:12 | XR_ITS ---
FINAL REPORT CLINICAL HISTORY: foot pain, no injury. weight bearing views. FINDINGS: Right foot Three views were obtained. There is no acute fracture or dislocation. There is moderate hallux valgus deformity. There is narrowing of the 1st metatarsophalangeal joint. Pes planus deformity seen with weight-bearing. There is a moderate os trigonum measuring 10 mm in greatest dimension. No acute soft tissue abnormality is identified. IMPRESSION: Degenerative and chronic appearing findings as above. Reviewed, Interpreted and Dictated by Mark Husain MD Transcribed by Raegan Hewitt Authenticated and [facility]
== END ==
PROVIDERS: PCP Nurse Practitioner Family; Visit Provider Podiatrist
DX: M79.671 Pain in right foot (principal)
CPT/HCPCS: 73630

== ENCOUNTER 2023-06-17 14:39 | Outpatient (CLI) | payer MEDICARE, SELFPAY | END 2023-06-17 23:59 | LOC: LAB.DROPOF 14:39 | PROVIDERS: PCP Nurse Practitioner Family; Visit Provider Nurse Practitioner Family | DX: R05.1 Acute cough (principal); R09.89 Other specified symptoms and signs involving the circulatory and respiratory systems | CPT/HCPCS: 87070; 87205 ==

== ENCOUNTER 2023-07-24 14:28 | Outpatient (CLI) | payer MEDICARE, SELFPAY ==
--- NOTE | 2023-07-24 14:36 | XR_ITS ---
FINAL REPORT CLINICAL HISTORY: cough, productive COMPARISON: 12/03/2021 FINDINGS: Two views of the chest were obtained. The heart size and pulmonary vascularity are within normal limits. A large hiatal hernia is present, also seen on the prior exam. No acute pulmonary abnormality is identified. Mild left base atelectasis is present. There is no pneumothorax. The bony thorax is intact. IMPRESSION: No active cardiopulmonary disease, with mild left base atelectasis present. Large hiatal hernia, also noted on the prior exam. Reviewed, Interpreted and Dictated by Teddy Brady III, MD Transcribed by Corin Mchugh Authenticated and [facility]
== END 2023-07-24 23:59 ==
LOC: RAD 14:29
PROVIDERS: PCP Nurse Practitioner Family; Visit Provider Nurse Practitioner Family
DX: R06.2 Wheezing (principal); R05.3 Chronic cough
CPT/HCPCS: 71046

== ENCOUNTER 2023-08-25 15:30 | Outpatient (CLI) | payer MEDICARE, SELFPAY ==
[2023-08-25 16:00] LABS: Basophils # 0.1 K/mm3 (0-0.2); Basophils % 1.4 % (0.1-2.0); Eosinophils # 0.7 K/mm3 (0.0-0.4); Eosinophils % 7.8 % (0.1-12.0); Hematocrit 42.9 % (37.0-47.0); Lymphocytes # 1.5 K/mm3 (0.7-4.5); Lymphocytes % 17.8 % (10-50); Mean Corpuscular HGB Conc 32.6 g/dL (31.8-35.4); Mean Corpuscular Hemoglobin 29.7 pg (27.0-31.2); Mean Corpuscular Volume 91.1 fl (81-99); Mean Platelet Volume 7.8 fl (7.4-10.4); Monocytes # 0.6 K/mm3 (0.1-1.0); Monocytes % 7.3 % (1.7-9.3); Neutrophils # 5.6 K/mm3 (1.8-7.8); Neutrophils % 65.6 % (37.0-80.0); Platelet Count 395 K/mm3 (142-424); Red Blood Count 4.71 M/mm3 (4.20-5.40); Red Cell Distribution Width 13.8 % (11.5-17.5); White Blood Count 8.5 K/mm3 (4.8-10.8)
[2023-08-25 16:35] LABS: Alanine Aminotransferase 22 U/L (12-78); Albumin Level 4.3 g/dl (3.5-5.0); Alkaline Phosphatase 94 U/L (38-126); Anion Gap 12.9 mEq/L (5-15); Aspartate Amino Transferase 38 U/L (14-36); Bilirubin,Direct 0.1 mg/dl (0.0-0.4); Bilirubin,Indirect 0.6 mg/dL (0.0-0.9); Bilirubin,Total 0.7 mg/dl (0.2-1.3); Bilirubin,Unconjugated 0.6 mg/dL (0.0-1.1); Blood Urea Nitrogen 11 mg/dl (7-17); Calcium 11.6 mg/dl (8.4-10.2); Carbon Dioxide 26 mmol/L (22.0-30.0); Chloride 100 mmol/L (98-107); Chol/HDL Ratio 2.4 (1-3.5); Cholesterol 173 mg/dl (140-200); Estimated Glomerular Filt Rate 70 ml/min (>60); GFR (African American) 84 ML/MIN (>60); Glucose 107 mg/dl (74-100); HDL Cholesterol 72 mg/dl (40-60); Magnesium 1.7 mg/dl (1.6-2.3); Potassium 3.9 mmoL/L (3.5-5.1); Sodium 135 mmol/L (136-145); Total Protein,Serum 6.6 g/dl (6.3-8.2); Triglycerides 146 mg/dl (30-150); VLDL Cholesterol 29 mg/dL (0-40)
[2023-08-25 16:44] LABS: NT Pro Brain Natriuretic Pep. 75.3 pg/mL (0-450)
[2023-08-25 16:46] LABS: Direct LDL Cholesterol 84.89 mg/dL (100-129)
[2023-08-25 16:50] LABS: Free T4 (Free Thyroxine) 1.31 ng/dl (0.78-2.19)
[2023-08-25 17:05] LABS: Thyroid Stimulating Hormone 0.39 uIU/mL (0.465-4.68)
[2023-08-28 14:14] LABS: Strongyloides IgG Antibody Negative (Negative)
[2023-08-31 19:08] LABS: D001-IgE D pteronyssinus <0.10 kU/L (Class 0); D002-IgE D farinae <0.10 kU/L (Class 0); E001-IgE Cat Dander <0.10 kU/L (Class 0); E005-IgE Dog Dander <0.10 kU/L (Class 0); E072-IgE Mouse Urine <0.10 kU/L (Class 0); G002-IgE Bermuda Grass <0.10 kU/L (Class 0); G006-IgE Timothy Grass <0.10 kU/L (Class 0); I006-IgE Cockroach, German <0.10 kU/L (Class 0); Immunoglobulin E, Total 78 IU/mL (6-495); M001-IgE Penicillium chrysogen <0.10 kU/L (Class 0); M002-IgE Cladosporium herbarum <0.10 kU/L (Class 0); M003-IgE Aspergillus fumigatus <0.10 kU/L (Class 0); M006-IgE Alternaria alternata <0.10 kU/L (Class 0); T001-IgE Maple/Box Elder <0.10 kU/L (Class 0); T003-IgE Common Silver Birch <0.10 kU/L (Class 0); T006-IgE Cedar, Mountain <0.10 kU/L (Class 0); T007-IgE Oak, White <0.10 kU/L (Class 0); T008-IgE Elm, American <0.10 kU/L (Class 0); T010-IgE Walnut <0.10 kU/L (Class 0); T011-IgE Maple Leaf Sycamore <0.10 kU/L (Class 0); T014-IgE Cottonwood <0.10 kU/L (Class 0); T015-IgE Ash, White <0.10 kU/L (Class 0); T022-IgE Pecan, Hickory <0.10 kU/L (Class 0); T070-IgE White Mulberry <0.10 kU/L (Class 0); W001-IgE Ragweed, Short <0.10 kU/L (Class 0); W011-IgE Thistle, Russian <0.10 kU/L (Class 0); W014-IgE Pigweed, Common <0.10 kU/L (Class 0); W018-IgE Sheep Sorrel <0.10 kU/L (Class 0)
== END 2023-08-25 23:59 ==
LOC: LAB 15:32
PROVIDERS: Internal Medicine Pulmonary Disease; PCP Nurse Practitioner Family; Visit Provider Internal Medicine
DX: D72.19 Other eosinophilia (principal); J30.9 Allergic rhinitis, unspecified; R00.0 Tachycardia, unspecified; R07.89 Other chest pain; Z82.49 Family history of ischemic heart disease and other diseases of the circulatory system; R42 Dizziness and giddiness; I45.10 Unspecified right bundle-branch block; R94.31 Abnormal electrocardiogram [ECG] [EKG]; R06.00 Dyspnea, unspecified; R05.3 Chronic cough
CPT/HCPCS: 36415; 80048; 80061; 80076; 82785; 83735; 83880; 84439; 84443; 85025; 86003; 86682

== ENCOUNTER 2023-09-10 14:03 | Outpatient (CLI) | payer MEDICARE, SELFPAY ==
--- NOTE | 2023-09-10 15:11 | RESP.PFTBD ---
PATIENT UNABLE TO PERFORM FVC'S NEEDED FOR METHACHOLINE TESTING. DR POMPA WAS NOTIFIED.
== END 2023-09-10 23:59 | disposition home or self-care (01) ==
LOC: RT 14:03
PROVIDERS: PCP Nurse Practitioner Family; Visit Provider Internal Medicine Pulmonary Disease
DX: R06.00 Dyspnea, unspecified (principal)

== ENCOUNTER 2023-09-16 13:27 | Outpatient (CLI) | payer MEDICARE, SELFPAY ==
--- NOTE | 2023-09-16 13:27 | CA_ITS ---
APPROVED REPORT EXAM: Comprehensive 2D, Doppler, and color-flow Echocardiogram Director Of Officiating: Awilda Dolan RVT Ht: 5 ft 7 in Wt: 212lbs BSA: 2.07 BP: 105/76 mmHg Indications: DYSPENA,CP,ABN EKG,RBBB TDS-LIMITED WINDOWS 2D Dimensions LA Volume 37.40 mL LA Volume Index 18.07 mL/m2 (M/F) 16-34 M-Mode Dimensions RVDd 2.24 cm (0.9-2.6) LA Diam 2.22 cm (1.9-4.0) LVDd 4.27 cm (3.5-5.7) LVDs 3.19 cm (3.5-5.7) IVSd 0.75 cm (0.6-1.1) PWd 0.41 cm (0.6-1.1) EF (Teich) 50.30% FS 25.30% EDV (Teich) 81.70 mL TAPSE 2.06 (<1.7) ESV (Teich) 40.60 mL LV Diastology E Decel Time 150 (160-240 msec) E/A Ratio 0.8 Aortic Valve VIK Index 1.49 cm2/m2 AoV Peak Hang. 118.0 (50-130 cm/s) AO Peak GR. 5.60 mmHg AO Mean GR. 2.90 (<5 mmHg) AO VTI 22.3 (18-25 cm) VIK (VTI) 3.15 (2.5-4.5 cm2) Mitral Valve MV E Max Hang. 56.0 (40-130 cm/s) MV A Velocity 73.0 (40-130 cm/s) E/A Ratio 0.76 MV PHT 44.0 ms Pulmonary Valve PV Peak Velocity 79.0 (50-150 cm/s) Tricuspid Valve TR P. Velocity 244.00 cm/s RAP Estimate 10.00 mmHg RVSP 33.80 mmHg Left Ventricle The left ventricle is normal size. The left ventricular systolic function is normal. The left ventricular ejection fraction is within the normal range. There is normal left ventricular wall thickness. There is normal LV segmental wall motion. The left ventricular diastolic function is normal. LVEF is 60%. Right Ventricle The right ventricle is normal size. The right ventricular systolic function is normal. Atria The left atrium size is normal. The right atrium size is normal. There is no Doppler evidence of interatrial shunt. Aortic Valve The aortic valve is mildly thickened. There is no aortic valvular stenosis. Trace aortic regurgitation. Mitral Valve The mitral valve leaflets are mildly thickened. Trace mitral regurgitation. No evidence of mitral valve stenosis. Tricuspid Valve The tricuspid valve leaflets are thin and pliable. Mild tricuspid regurgitation. RVSP is 20-25 mmHg. Pulmonic Valve The pulmonary valve is normal in structure. Trace pulmonic regurgitation. Great Vessels The aortic root is normal in size. The ascending aorta is not well-visualized. IVC is normal in size and collapses >50% with inspiration. Pericardium Trivial pericardial effusion. No echo indications of tamponade. Other Information Study Quality: Fair Conclusion Normal biventricular systolic function. Mild TR. Trivial pericardial effusion. Electronically signed by : Shirlene Marie MD 09/20/2023 21:55:26
== END 2023-09-16 23:59 | disposition home or self-care (01) ==
PROVIDERS: PCP Nurse Practitioner Family; Visit Provider Internal Medicine
DX: R06.00 Dyspnea, unspecified (principal); R05.3 Chronic cough; R07.89 Other chest pain; R94.31 Abnormal electrocardiogram [ECG] [EKG]; I45.10 Unspecified right bundle-branch block; R42 Dizziness and giddiness; R00.0 Tachycardia, unspecified
CPT/HCPCS: 93306

== ENCOUNTER 2023-10-29 14:50 | Outpatient (CLI) | payer MEDICARE, SELFPAY ==
--- NOTE | 2023-10-29 14:50 | CT_ITS ---
FINAL REPORT TECHNIQUE: Axial images through the chest were performed by computed tomography. High-resolution images were obtained with 1.25 millimeter slices along with routine noncontrast chest CT. This study was performed with techniques to keep radiation doses as low as reasonably achievable, (ALARA). Individualized dose reduction techniques using automated exposure control or adjustment of mA and/or kV according to the patient's size were employed. CLINICAL HISTORY: .HIGH RESOLUTION, NODULE COMPARISON: Prior chest CT dated 12/05/2020 FINDINGS: High-resolution images show no evidence of interstitial disease or bronchiectasis. No acute lung disease is present. There is a 2 mm right upper lobe nodule, stable since the prior CT. There is another 9 mm nodule in the right lung base along the hemidiaphragm, also stable since the prior exam. No pleural or pericardial effusion is seen. Calcified nodules are present, with no evidence of enlarged noncalcified nodes. A large hiatal hernia is again noted. Left thyroid nodules are again noted, stable since the prior exam. IMPRESSION: No evidence of interstitial disease or bronchiectasis. Stable nodules as described above, with no new nodules identified since the prior chest CT of 2020. Reviewed, Interpreted and Dictated by Martha Nunes MD Transcribed by Corin Mchugh Authenticated and [facility]
== END 2023-10-29 23:59 | disposition home or self-care (01) ==
LOC: RAD 14:50
PROVIDERS: PCP Nurse Practitioner Family; Visit Provider Internal Medicine Pulmonary Disease
DX: J84.9 Interstitial pulmonary disease, unspecified (principal)
CPT/HCPCS: 71250

== ENCOUNTER 2023-11-11 16:00 | Outpatient (RCR) | payer MEDICARE, SELFPAY | END 2023-11-11 17:20 | disposition home or self-care (01) | LOC: PT 16:00 | PROVIDERS: Visit Provider Orthopaedic Surgery | DX: M25.551 Pain in right hip (principal) | CPT/HCPCS: 97010; 97110; 97163; 97164; 97530 ==

== ENCOUNTER 2023-12-24 16:01 | Outpatient (CLI) | payer MEDICARE, SELFPAY ==
--- NOTE | 2023-12-24 16:02 | MM_ITS ---
PROCEDURE INFORMATION: Exam: MG Bilateral Screening 3D Mammography Exam date and time: 12/24/2023 3:52 PM Age: 78 years old Clinical indication: Screening examination. TECHNIQUE: Imaging protocol: Bilateral Screening tomosynthesis and 2D mammography including computer-aided detection (CAD) when performed. COMPARISON: 1. MG MM DIG SCREENING MAMM BI W/CAD 11/25/2022 1:23 PM 2. MG MM DIG SCREENING MAMM BI W/CAD 11/21/2021 3:15 PM 3. MG MM DIG MAMM DX UNILAT RT CAD 12/05/2020 10:23 AM 4. MG MM DIG MAMM DX UNILAT RT CAD 11/01/2020 1:57 PM FINDINGS: MAMMOGRAPHY: Breast composition: There are scattered areas of fibroglandular density. Mass: None. Architectural distortion: None. Calcifications: No suspicious calcifications. Asymmetric density: No developing asymmetry. Skin thickening: None. Axillary adenopathy: None. IMPRESSION: See comment Please note sonography report from fine-needle aspiration 12/17/2020 at 1 o'clock indicated atypical aspirate with recommendation for additional sampling, please correlate and follow-up as indicated. No mammographic evidence of malignancy. Annual screening is recommended unless otherwise clinically indicated. ASSESSMENT: BI-RADS Category 1: Negative
== END 2023-12-24 23:59 | disposition home or self-care (01) ==
LOC: RAD 16:02
PROVIDERS: PCP Nurse Practitioner Family; Visit Provider Nurse Practitioner Family
DX: Z12.31 Encounter for screening mammogram for malignant neoplasm of breast (principal)
CPT/HCPCS: 77063; 77067

== ENCOUNTER 2024-01-08 13:38 | Outpatient (CLI) | payer MEDICARE, SELFPAY ==
--- NOTE | 2024-01-08 13:38 | CT_ITS ---
FINAL REPORT CLINICAL HISTORY: Chronic back pain FINDINGS: CT LUMBAR SPINE WITHOUT CONTRAST TECHNIQUE: Axial images were obtained of the lumbar spine by computed tomography. Coronal and sagittal reconstruction process performed. This study was performed with techniques to keep radiation doses as low as reasonably achievable (ALARA). Individualized dose reduction techniques using automated exposure control or adjustment of mA and/or kV according to the patient's size were employed. FINDINGS: There is no acute fracture or subluxation. There is a lumbar scoliosis convex to the right measuring about 40 degrees. There are advanced hypertrophic changes of degenerative disc disease from L2-3 through L5-S1. T12-L1: There is no significant spinal canal stenosis or neuroforaminal narrowing. L1-2: There is a mild diffuse disc bulge. There is no significant spinal canal stenosis or neuroforaminal narrowing. L2-3: There is a moderate diffuse disc bulge and endplate hypertrophy. There is no significant spinal canal stenosis. There is moderate left neuroforaminal narrowing. L3-4: There is a mild diffuse disc bulge. There is no significant spinal canal stenosis. There is mild to moderate bilateral neuroforaminal narrowing. L4-5: There is a moderate diffuse disc bulge and endplate hypertrophy. There is no significant spinal canal stenosis. There is moderate right neuroforaminal narrowing. L5-S1: There is a mild diffuse disc bulge and endplate hypertrophy. There is no significant spinal canal stenosis. There is moderate right neuroforaminal narrowing. IMPRESSION: Scoliosis. Diffuse hypertrophic changes of degenerative disc disease from L2-3 through L5-S1. Neuroforaminal narrowing most evident on the right at L4-5 and L5-S1. Reviewed, Interpreted and Dictated by Mark Husain MD Transcribed by Elyssa Warner Authenticated and [facility]
== END 2024-01-08 23:59 | disposition home or self-care (01) ==
LOC: RAD 13:38
PROVIDERS: PCP Nurse Practitioner Family; Visit Provider Specialist
DX: M54.50 Low back pain, unspecified (principal); M47.27 Other spondylosis with radiculopathy, lumbosacral region; M48.062 Spinal stenosis, lumbar region with neurogenic claudication; R29.898 Other symptoms and signs involving the musculoskeletal system; M79.604 Pain in right leg; M79.605 Pain in left leg; G89.4 Chronic pain syndrome
CPT/HCPCS: 72131

== ENCOUNTER 2024-02-16 16:55 | Outpatient (CLI) | payer MEDICARE, SELFPAY ==
[2024-02-16 16:44] LABS: Microscopic, Urine URINE MICROSCOPIC (MICROSCOPIC)
[2024-02-16 17:01] LABS: Appearance,Urine CLEAR (Clear); Bilirubin,Urine Negative (Negative); Blood, Urine Negative (Negative); Color,Urine YELLOW (Yellow); Glucose,Urine (UA) Negative (Negative); Ketones,Urine Negative (Negative); Leukocyte Esterase,Urine 1+ (Negative); Nitrate,Urine Negative (Negative); PH,Urine 7.5 (5.0-8.5); Protein,Urine Negative (Negative); Urobilinogen,Urine 0.2 EU/dl (0.2)
[2024-02-16 17:18] LABS: Amphetamine/Metha Screen,Urine Negative ng/ml (<1000)
[2024-02-16 17:19] LABS: Barbiturates Screen,Urine Negative ng/ml (<200)
[2024-02-16 17:21] LABS: Benzodiazepines Screen,Urine Negative ng/ml (<200)
[2024-02-16 17:22] LABS: Cannabinoid Screen,Urine Negative ng/ml (<50)
[2024-02-16 17:23] LABS: Cocaine Screen,Urine Negative ng/ml (<300); Methadone Screen,Urine Negative ng/ml (<300)
[2024-02-16 17:24] LABS: Opiate Screen,Urine Negative ng/ml (<300); Phencyclidine Screen,Urine Negative ng/ml (<25)
[2024-02-16 17:49] LABS: Bacteria,Urine 1+ /lpf; WBC,Urine 20-50 #/hpf (0-3)
== END 2024-02-16 23:59 | disposition home or self-care (01) ==
LOC: LAB.DROPOF 16:55
PROVIDERS: PCP Nurse Practitioner Family; Visit Provider Nurse Practitioner Family
DX: R30.0 Dysuria (principal); Z79.899 Other long term (current) drug therapy
CPT/HCPCS: 80307; 81001; 87086

== ENCOUNTER 2024-02-25 14:45 | Outpatient (CLI) | payer MEDICARE, SELFPAY ==
--- NOTE | 2024-02-25 14:59 | US_ITS ---
PROCEDURE INFORMATION: Exam: US Soft Tissue Head and Neck, TI-RADS Exam date and time: 02/25/2024 3:00 PM Age: 79 years old Clinical indication: Condition or disease; Other: Nodule; Additional info: Thyroid nodule TECHNIQUE: Imaging protocol: Real-time ultrasound scan of the neck with image documentation. Exam focused on the thyroid. Total images: 66 COMPARISON: US THYROID 02/25/2024 3:00 PM FINDINGS: Right thyroid lobe: Right lobe measures 3.6 x 1.9 x 2.2 cm. Left thyroid lobe: Left lobe measures 5.2 x 2.5 x 2.8 cm. Multiple thyroid nodules and cysts noted bilaterally. Isthmus: Isthmus measures 5 mm. Thyroid nodule 1 Size: 1.1 x 1.0 x 1.0 cm Thyroid nodule 1 Location: Isthmus Thyroid nodule 1 Composition: Mixed solid and cystic Thyroid nodule 1 Echogenicity: Hypoechoic Thyroid nodule 1 Shape: Wider than tall Thyroid nodule 1 Margins: Smoothly marginated. Thyroid nodule 1 Echogenic foci: No echogenic foci Thyroid nodule 1 Points: 3 Thyroid nodule 2 Size: 1.1 x 1.4 x 0.6 cm Thyroid nodule 2 Location: Upper pole right lobe Thyroid nodule 2 Composition: Solid Thyroid nodule 2 Echogenicity: Hypoechoic Thyroid nodule 2 Shape: Wider than tall Thyroid nodule 2 Margins: Smoothly marginated. Thyroid nodule 2 Echogenic foci: No echogenic foci Thyroid nodule 2 Points: 4 Thyroid nodule 3 Size: 1.3 x 1.3 x 1.1 cm Thyroid nodule 3 Location: Upper pole left lobe Thyroid nodule 3 Composition: Solid Thyroid nodule 3 Echogenicity: Hypoechoic Thyroid nodule 3 Shape: Wider than tall Thyroid nodule 3 Margins: Smoothly marginated. Thyroid nodule 3 Echogenic foci: No echogenic foci Thyroid nodule 3 Points: 4 Thyroid nodule 4 Size: 2.0 x 2.0 x 1.8 cm Thyroid nodule 4 Location: Lower pole left lobe Thyroid nodule 4 Composition: Solid Thyroid nodule 4 Echogenicity: Hypoechoic Thyroid nodule 4 Shape: Wider than tall Thyroid nodule 4 Margins: Smoothly marginated. Thyroid nodule 4 Echogenic foci: No echogenic foci Thyroid nodule 4 Points: 4 Lymph nodes: No enlarged nodes. IMPRESSION: 1. Nodule 1: TI-RADS category TR3, Mildly Suspicious. No fine needle aspiration or follow-up ultrasound is recommended. (Reference: Tessler) 2. Nodule 2: TI-RADS category TR4, Moderately Suspicious. Follow-up thyroid ultrasound at 1, 2, 3, and 5 years is recommended. (Reference: Salvador) 3. Nodule 3: TI-RADS category TR4, Moderately Suspicious. Follow-up thyroid ultrasound at 1, 2, 3, and 5 years is recommended. (Reference: Salvador) 4. Nodule 4: TI-RADS category TR4, Moderately Suspicious. Fine needle aspiration is recommended. (Reference: Salvador) REFERENCES: Salvador FN, Kiersten GALARZA, Suresh EG et al. ACR Thyroid Imaging, Reporting and Data System (TI-RADS): White Paper of the ACR TI-RADS Committee. J Am Bonita Radiol. 2017; 14: 587-595.
== END 2024-02-25 23:59 | disposition home or self-care (01) ==
LOC: RAD 14:47
PROVIDERS: PCP Nurse Practitioner Family; Visit Provider Nurse Practitioner
DX: E04.1 Nontoxic single thyroid nodule (principal)
CPT/HCPCS: 76536

== ENCOUNTER 2024-11-22 15:14 | Outpatient (CLI) | payer MEDICARE, SELFPAY ==
[2024-11-22 14:52] LABS: Hematocrit 41.1 % (37.0-47.0); Hemoglobin 13.5 g/dL (12.2-16.2); Immature Granulocytes % 0.3 %; Mean Corpuscular HGB Conc 32.8 g/dL (31.8-35.4); Mean Corpuscular Hemoglobin 29.7 pg (27.0-31.2); Mean Corpuscular Volume 90.5 fl (81-99); Nucleated Red Blood Cells % 0 %; Platelet Count 378 K/mm3 (142-424); Red Blood Count 4.54 M/mm3 (4.20-5.40); Red Cell Distribution Width-SD 40.9 fL; White Blood Count 7.2 K/mm3 (4.8-10.8)
--- OUTSIDE RECORDS SUMMARY | 2024-11-22 15:16 | XMS_ITS | Clinical Summary ---
Author Organization Healthcare Address [address] [place] [address] Care Team Providers Care Ventilation Worker Name Role Phone Kirsty Morales Primary Care Provider [phone] Social History Tobacco Use Types Packs/Day Years Used Date Smoking Tobacco: Never Assessed Comments Unknown Sex and Gender Information Value Date Recorded Sex Assigned at Not on file Legal Sex Female 8:26 PM EDT Gender Identity Not on file Sexual Orientation Not on file Plan of Treatment Upcoming Encounters Date Type Department Care Team (Late st Contact Info) Description 03/23/2025 3:30 PM EST Ovarian Cancer Screening [facility] Gynecology [address] [place] [address] Health Maintenance Due Date Last Done Comments [facility]-Bone Density Scan 1945 [facility]-Depression Screening 1945 [facility]-Hepatitis C Screening 1945 [facility]-Medicare Annual Wellness (AWV) 1945 [facility]-Infant/Child/Adol SDOH Screenings 1945 [facility]- SDOH Screenings 1965 [facility]-Adult SDOH Screenings 1965 [facility]-DTaP,Tdap,and Td Vaccines (1 - Tdap) 1966 [facility]-Pneumococcal Vaccine: 50+ Years (1 of 1 - PCV) 1997 [facility]-Zoster Vaccines (1 of 2) 1997 [facility]-RSV Vaccine: 60+ Years or (1 - 1-dose 75+ series) 2022 [id number] Vaccine (3 - 2023- season) 2024 07/04/2020, 06/06/2020 [facility]-Influenza Vaccine (#1) 01/09/202503/05, 02/17/2023, 02/18/2022, Additional history exists HPV Vaccines Aged Out No longer eligi ble based on patient's age to complete this topic [facility]-HIB Vaccines Aged Out No longer e ligible based on patient's age to complete this topic [facility]-Hepatitis A Vaccines Aged Out No longer eligible based on patient's age to complete this topic [facility]-IPV Vaccines Aged Out No longer e ligible based on patient's age to complete this topic [facility]-Rotavirus Vaccines Aged Out No lo nger eligible based on patient's age to complete this topic Insurance [facility] MEDIC[facility] Care Teams Ventilation Worker Relationship Specialty Start Date End Date Kirsty Morales PA [address] [place] [address] View [facility] Dane Houes [place] [id number] PCP - General 10/10/21
[2024-11-22 15:28] LABS: Alanine Aminotransferase 17 U/L (12-78); Albumin Level 4.2 g/dl (3.5-5.0); Albumin/Globulin Ratio 1.8 (1.1-1.8); Alkaline Phosphatase 78 U/L (38-126); Anion Gap 14.7 mEq/L (5-15); Aspartate Amino Transferase 34 U/L (14-36); Bilirubin,Total 1.1 mg/dl (0.2-1.3); Blood Urea Nitrogen 8 mg/dl (7-17); Calcium 11.4 mg/dl (8.4-10.2); Carbon Dioxide 27 mmol/L (22.0-30.0); Chloride 96 mmol/L (98-107); Cholesterol 150 mg/dl (140-200); Creatinine,Serum 0.50 mg/dl (0.52-1.04); Estimated Glomerular Filt Rate 120 ml/min (>60); GFR (African American) 145 ML/MIN (>60); Globulin 2.4 g/dL (1.3-3.2); Glucose 91 mg/dl (74-100); HDL Cholesterol 51 mg/dl (40-60); Magnesium 1.4 mg/dl (1.6-2.3); Potassium 3.7 mmoL/L (3.5-5.1); Sodium 134 mmol/L (136-145); Total Protein,Serum 6.6 g/dl (6.3-8.2); Triglycerides 93 mg/dl (30-150)
[2024-11-22 15:58] LABS: Thyroid Stimulating Hormone 0.29 uIU/mL (0.465-4.68)
[2024-11-25 17:11] LABS: 25-OH Vitamin D, Total 31.5 ng/mL (30-100)
[2024-11-26 17:07] LABS: Calcium, Ionized 5.9 mg/dL (4.5-5.6)
== END 2024-11-22 23:59 | disposition home or self-care (01) ==
LOC: LAB.DROPOF 15:15
PROVIDERS: PCP Nurse Practitioner Family; Visit Provider Nurse Practitioner Family
DX: E83.52 Hypercalcemia (principal); I10 Essential (primary) hypertension; E78.5 Hyperlipidemia, unspecified
CPT/HCPCS: 80053; 80061; 82306; 82330; 83735; 83970; 84443; 85025

== ENCOUNTER 2025-01-04 13:17 | Outpatient (CLI) | payer MEDICARE, SELFPAY ==
--- OUTSIDE RECORDS SUMMARY | 2025-01-04 13:20 | XMS_ITS | Clinical Summary ---
Author Organization Healthcare Address [address] [place] [address] Care Team Providers Care Data Analytics Specialist Name Role Phone Kirsty Morales Primary Care Provider [phone] Social History Tobacco Use Types Packs/Day Years [...] 03/23/2025 3:30 PM EST Ovarian Cancer Screening [facility] Gynecology [address] [place] [address] Health Maintenance Due Date Last Done Comments [facility]-Bone Density Scan 1947 [facility]-Depression Screening 1947 [facility]-Hepatitis C Screening 1947 [facility]-Medicare Annual Wellness (AWV) 1947 [facility]-/Child/Adol SDOH Screenings 1947 [facility]- SDOH Screenings 1965 [facility]-Adult SDOH Screenings 1965 [facility]-DTaP,Tdap,and Td Vaccines (1 - Tdap) 1966 [facility]-Pneumococcal Vaccine: 50+ Years (1 of 1 - PCV) 1997 [facility]-Zoster Vaccines (1 of 2) 1997 [facility]-RSV Vaccine: 60+ Years or (1 - 1-dose 75+ series) 2022 [id number] Vaccine (3 - 2023- season) 2024 07/04/2020, [...] patient's age to complete this topic Insurance [facility] MEDICARE Care Teams Data Analytics Specialist Relationship Specialty Start Date End Date Kirsty Morales PA [address] [place] [address] View [facility] Dane House [place] [id number] PCP - General 10/10/21
--- NOTE | 2025-01-04 13:30 | MM_ITS ---
PROCEDURE INFORMATION: Exam: MG Bilateral Screening 3D Mammography Exam date and time: 01/04/2025 1:27 PM Age: 79 years old Clinical indication: Screening exam TECHNIQUE: Imaging protocol: Bilateral Screening tomosynthesis and 2D mammography including computer-aided detection (CAD) when performed. COMPARISON: 1. MG MM DIG SCREENING MAMM BI W/CAD 12/24/2023 3:52 PM 2. MG MM DIG SCREENING MAMM BI W/CAD 11/25/2022 1:23 PM FINDINGS: MAMMOGRAPHY: Breast composition: There are scattered areas of fibroglandular density. Mass: No suspicious masses. Architectural distortion: None. Calcifications: No suspicious calcifications. Asymmetric density: None. Skin thickening: None. Axillary adenopathy: None. IMPRESSION: No mammographic evidence of malignancy. Annual screening is recommended unless otherwise clinically indicated. ASSESSMENT: BI-RADS Category 1: Negative.
== END 2025-01-04 23:59 | disposition home or self-care (01) ==
LOC: RAD 13:18
PROVIDERS: PCP Nurse Practitioner Family; Visit Provider Nurse Practitioner Family
DX: Z12.31 Encounter for screening mammogram for malignant neoplasm of breast (principal); R92.323 Mammographic fibroglandular density, bilateral breasts
CPT/HCPCS: 77063; 77067

== ENCOUNTER 2025-01-31 10:08 | Day surgery (SDC) | payer MEDICARE, SELFPAY ==
[2025-01-24 13:38] VITALS: BMI 31.3
[2025-01-31] VITALS (7 sets, daily range): BP systolic 163–218; BP diastolic 79–101; PULSE 60–89; RESP 16–18; TEMP 36.2–36.8; O2SAT 96–98; BMI 31.3
[2025-01-31] MEDS: CYCLOPENTOLATE 2% OPHTH SOLN 2ML BOTTLE OP ×3 (11:10→11:20)
[2025-01-31] MEDS: PHENYLEPHRINE 2.5% OPHTH SOLN 2ML OP ×3 (11:10→11:20)
[2025-01-31] MEDS: TETRACAINE 0.5% OPTH SOL 15ML OP ×3 (11:10→11:20)
[2025-01-31] MEDS: MIDAZOLAM 2MG/2ML VIAL 2 MG (12:01)
[2025-01-31] MEDS: LIDOCAINE 1% PF 2ML VIAL 2 ML IJ (12:02)
[2025-01-31] MEDS: TIMOLOL 0.5% OPTH SOLN 5ML OP (12:02)
[2025-01-31] MEDS: TOBRAMYCIN/DEX OPTH SUSP 2.5ML OP (12:02)
== END 2025-01-31 12:35 | disposition home or self-care (01) ==
PROVIDERS: PCP Nurse Practitioner Family; Visit Provider Ophthalmology
DX: H25.812 Combined forms of age-related cataract, left eye (principal); K21.9 Gastro-esophageal reflux disease without esophagitis; I10 Essential (primary) hypertension; E78.00 Pure hypercholesterolemia, unspecified; J45.40 Moderate persistent asthma, uncomplicated; Z79.51 Long term (current) use of inhaled steroids; Z79.899 Other long term (current) drug therapy
CPT/HCPCS: 66982; J2250; V2632

== ENCOUNTER 2025-02-21 10:40 | Day surgery (SDC) | payer MEDICARE, SELFPAY ==
[2025-02-14 14:19] VITALS: BMI 31.3
--- NOTE | 2025-02-21 10:33 | HMH.PROCNOTE ---
[facility] Procedure Note Date: 01/31/25 Time: 10:34 Procedure Note:: Preoperative Diagnosis: Cataract combined NS Cortical Complex [Left] Eye Postop diagnosis: same Operation: Microscopic phacoemulsification with intraocular lens implant [Left] Eye Specimen: None Blood Loss: None The patient was examined in the office with a complaint of poor vision in the [left] eye. The patient reports that this interferes with ADLs such as reading, watching TV and/or driving or the vision is like looking through a foggy haze and is very troubling. The patient was examined and found to have a visually significant cataract with best corrected vision of [20/400] by refraction and/or glare testing. Treatment options, risks and benefits were explained and the patient elected to have cataract surgery in an attempt to improve their vision. The patient had the eye anesthetized with topical tetracaine, the eye ways prepped and draped in the usual fashion for cataract surgery. A paracentesis and a temporal keratotomy were made. 0.2cc of 1% lidocaine PF was placed into the anterior chamber. And aqueous/viscoelastic exchange was done and a 360 degree capsulorexis was performed. Through hydrodissection and delineation with BSS on a cannula was done. The lens nucleus was phecoemulsified with CDE of [7.99]. Residual cortical material was removed using automated I&A The capsular bag was deepened with viscoelastica and a PCIOL was placed in the capsular bag with good centration and stability. Residual viscoelastic was removed using automated I&A. The keratotomy incision was hydrated with BSS on a cannula. The wound were checked and found to be water tight. IOP was checked digitally and adjusted as needed so as not to be too high. 1 drop of timolol 0.5%, ofloxacin, prednisolone acetate and ketorolac was instilled and eye shield taped over the eye. The patient was taken to recovery in good condition and will be seen postoperatively.
[2025-02-21 13:14] VITALS: BP 173/101; PULSE 110; RESP 16; TEMP 36.4; O2SAT 96; BMI 31.3
[2025-02-21] MEDS: PHENYLEPHRINE 2.5% OPHTH SOLN 2ML OP ×3 (13:20→13:30)
[2025-02-21] MEDS: TETRACAINE 0.5% OPTH SOL 15ML OP ×3 (13:20→13:30)
[2025-02-21] MEDS: CYCLOPENTOLATE 2% OPHTH SOLN 2ML BOTTLE OP ×3 (13:20→13:30)
[2025-02-21 14:20] VITALS: BP 187/96; PULSE 71; RESP 16; O2SAT 97
[2025-02-21 14:25] VITALS: BP 180/94; PULSE 74; RESP 16; O2SAT 98
[2025-02-21] MEDS: LIDOCAINE 1% PF 2ML VIAL 2 ML IJ (14:25)
[2025-02-21] MEDS: MIDAZOLAM 2MG/2ML VIAL 1 MG IV (14:26)
[2025-02-21] MEDS: TOBRAMYCIN/DEX OPTH SUSP 2.5ML OP (14:26)
[2025-02-21] MEDS: TIMOLOL 0.5% OPTH SOLN 5ML OP (14:26)
[2025-02-21 14:30] VITALS: BP 195/77; PULSE 71; RESP 16; O2SAT 98
[2025-02-21 14:35] VITALS: BP 197/89; PULSE 70; RESP 16; O2SAT 97
[2025-02-21 14:45] VITALS: BP 152/77; PULSE 71; RESP 17; TEMP 36.1; O2SAT 99
--- NOTE | 2025-02-21 15:04 | HMH.PROCNOTE ---
[facility] Procedure Note Date: 02/21/25 Time: 15:04 Procedure Note:: Preoperative Diagnosis: Cataract combined NS Cortical Complex [Right] Eye Postop diagnosis: same Operation: Microscopic phacoemulsification with intraocular lens implant [Right] Eye Specimen: None Blood Loss: None The patient was examined in the office with a complaint of poor vision in the [right] eye. The patient reports that this interferes with ADLs such as reading, watching TV and/or driving or the vision is like looking through a foggy haze and is very troubling. The patient was examined and found to have a visually significant cataract with best corrected vision of [20/400] by refraction and/or glare testing. Treatment options, risks and benefits were explained and the patient elected to have cataract surgery in an attempt to improve their vision. The patient had the eye anesthetized with topical tetracaine, the eye ways prepped and draped in the usual fashion for cataract surgery. A paracentesis and a temporal keratotomy were made. 0.2cc of 1% lidocaine PF was placed into the anterior chamber. And aqueous/viscoelastic exchange was done and a 360 degree capsulorexis was performed. Through hydrodissection and delineation with BSS on a cannula was done. The lens nucleus was phecoemulsified with CDE of [5.12]. Residual cortical material was removed using automated I&A The capsular bag was deepened with viscoelastica and a PCIOL was placed in the capsular bag with good centration and stability. Residual viscoelastic was removed using automated I&A. The keratotomy incision was hydrated with BSS on a cannula. The wound were checked and found to be water tight. IOP was checked digitally and adjusted as needed so as not to be too high. 1 drop of timolol 0.5%, ofloxacin, prednisolone acetate and ketorolac was instilled and eye shield taped over the eye. The patient was taken to recovery in good condition and will be seen postoperatively.
== END 2025-02-21 15:01 | disposition home or self-care (01) ==
PROVIDERS: PCP Nurse Practitioner Family; Visit Provider Ophthalmology
DX: H25.813 Combined forms of age-related cataract, bilateral (principal); H02.839 Dermatochalasis of unspecified eye, unspecified eyelid; J45.40 Moderate persistent asthma, uncomplicated; Z79.51 Long term (current) use of inhaled steroids; H91.90 Unspecified hearing loss, unspecified ear; Z96.651 Presence of right artificial knee joint; K21.9 Gastro-esophageal reflux disease without esophagitis; I10 Essential (primary) hypertension; E78.00 Pure hypercholesterolemia, unspecified; Z79.899 Other long term (current) drug therapy
CPT/HCPCS: 66984; J2250; V2632

== ENCOUNTER 2025-03-02 15:16 | Outpatient (CLI) | payer MEDICARE, SELFPAY ==
--- NOTE | 2025-03-02 15:30 | US_ITS ---
FINAL REPORT TECHNIQUE: Real-time grayscale and color ultrasound of the thyroid was performed. CLINICAL HISTORY: history of thyroid nodules COMPARISON: 02/25/2024 FINDINGS: There is left-sided thyroid enlargement with a left thyroid volume measuring 20 mm and previously measuring 19 mm, stable. The right thyroid lobe is normal in size. There are numerous mixed cystic and solid nodules within both thyroid lobes. The largest on the right is a TR 3 lesion measuring 12 mm and previously measured 13 mm, not significantly changed. Left a dominant mixed cystic and solid TR 3 nodule measures up to 24 mm, not significantly changed. The largest completely solid lesion on the left is a TR 3 lesion measuring 12 mm medially and 12 mm inferiorly, unchanged. IMPRESSION: Stable multinodular goiter with lesions as above. Twelve month follow-up may be considered. Reviewed, Interpreted and Dictated by Martha Nunes MD Transcribed by Alma Frost Authenticated and [facility]
--- OUTSIDE RECORDS SUMMARY | 2025-03-02 15:35 | XMS_ITS | Data Portability ---
Author Organization [facility] ADMIN Address [address] [place] [id number] Care Team Providers Care Billiard Table Assembler Name Role Phone HERNAN SHIRLEY Referring Provider [phone] Assessment No assessment recorded. Plan of Treatment Reminders Order Date Submit Date Provider Last Modified By Organization Details Last Modified Time Details Appointments None recorded. Lab ige, total, serum 2022 023 [facility] (Registration ), [address] [place], [address], 3 15:56:08 IgG, QN, serum 2022 023 [facility] (Registration ), [address] [place], [address], 3 15:56:07 CBC w/ auto diff 2022 023 [facility] (Registration ), [address] [place], [address], 3 18:23:03 allergy panel, serum or plasma - zone 5 2022 023 [facility] (Registration ), [address] [place], [address], 3 15:56:08 Referral None recorded. Procedures None recorded. Surgeries None recorded. Imaging CT, chest, w/o contrast 2022 023 [facility] (Centralized Scheduling), [address], [place], [address], 3 15:40:06 PFT, plethysmog denisa 2022 023 [email or web address] [facility] (Centralized Scheduling), [address], [place], [address], 3 10:44:12 Medication Orders albuterol sulfate HFA 90 mcg/actuat ion aerosol inhaler 2022 023 [id number], [address], [id number], 3 15:52:59 Patient TargetsNo targets recorded. Patient InstructionsNo instructions recorded. Reason for Referral None Reported. Results Created Date Observation Date Name Description Value Unit Range Abnormal Flag Note LastModifiedBy Organization Detail LastModifiedTime 01/28/2001/27/2023 CBC AUTO W DIFF WBC 9.6 K/uL 4.0-10 .5 Not Available [facility] ([facility]) [address], [place], [address], 01/27/2023 18:23:03 01/28/20 23 01/27/2023 CBC AUTO W DIFF RBC 4.5 M/mm3 4.2-6. 4 Not Available [facility] ([facility]) [address] , [place], [address], 01/27/2023 18:23:03 01/28/20 23 01/27/2023 CBC AUTO W DIFF HGB 12.7 gm/dL 12.5-1 6.0 Not Available [facility] ([facility]) [address], [place], [address], 01/27/2023 18:23:03 01/28/20 23 01/27/2023 CBC AUTO W DIFF HCT 39.5 % 37.0-4 7.0 Not Available [facility] ([facility]) [address] , [place], [address], 01/27/2023 18:23:03 01/28/20 23 01/27/2023 CBC AUTO W DIFF MCV 87.0 fL 78-100 Not Available [facility] ([facility]) [address] , [place], [address], 01/27/2023 18:23:03 01/28/20 23 01/27/2023 CBC AUTO W DIFF MCH 28.0 pg 27-31 Not Available [facility] ([facility]) [address], [place], [address], 01/27/2023 18:23:03 01/28/20 23 01/27/2023 CBC AUTO W DIFF MCHC 32.2 g/dL 32-36 Not Available [facility] ([facility]) [address] , [place], [address], 01/27/2023 18:23:03 01/28/20 23 01/27/2023 CBC AUTO W DIFF RDW 13.3 % 11.5-1 4.0 Not Available [facility] ([facility]) [address] , [place], [address], 01/27/2023 18:23:03 01/28/20 23 01/27/2023 CBC AUTO W DIFF platelet count 396 K/uL 150-45 0 Not Available [facility] ([facility]) [address] , [place], [address], 01/27/2023 18:23:03 01/28/20 23 01/27/2023 CBC AUTO W DIFF MPV 10.3 fL 6-9.5 high Not Available [facility] ([facility]) [address] , [place], [address], 01/27/2023 18:23:03 01/28/20 23 01/27/2023 CBC AUTO W DIFF neutrophil% 70.7 % 43-65 high Not Available [facility] ([facility]) [address] [place], [address], 01/27/2023 18:23:03 01/28/20 23 01/27/2023 CBC AUTO W DIFF lymphocyte% 13.5 % 20.5-4 5.5 low Not Available [facility] ([facility]) [address], [place], [address], 01/27/2023 18:23:03 01/28/20 23 01/27/2023 CBC AUTO W DIFF monocyte% 10.6 % 5.5-11 .7 Not Available [facility] ([facility]) [address] [place], [address], 01/27/2023 18:23:03 01/28/20 23 01/27/2023 CBC AUTO W DIFF eosinophil% 4.0 % 0.9-2. 9 high Not Available [facility] ([facility]) [address] [place], [address], 01/27/2023 18:23:03 01/28/20 23 01/27/2023 CBC AUTO W DIFF basophil% 0.4 % 0.2-1. 0 Not Available [facility] ([facility]) [address] [place], [address], 01/27/2023 18:23:03 01/28/20 23 01/27/2023 CBC AUTO W DIFF immature granulocytes % 0.8 % 0.0-0. 8 Not Available [facility] ([facility]) [address] [place], [address], 01/27/2023 18:23:03 01/28/20 23 01/27/2023 CBC AUTO W DIFF nucleated red blood cells % 0.0 % Not Available [facility] ([facility]) [address] [place], [address], 01/27/2023 18:23:03 01/28/20 23 01/27/2023 CBC AUTO W DIFF neutrophil# 6.8 K/uL 2.2-4. 8 high Not Available [facility] ([facility]) [address], [place], [address], 01/27/2023 18:23:03 01/28/20 23 01/27/2023 CBC AUTO W DIFF lymphocyte# 1.3 cell/ mcL 1.3-2. 9 Not Available [facility] ([facility]) [address], [place], [address], 01/27/2023 18:23:03 01/28/20 23 01/27/2023 CBC AUTO W DIFF monocyte# 1.0 cell/ mcL 0.3-0. 8 high Not Available [facility] ([facility]) [address], [place], [address], 01/27/2023 18:23:03 01/28/20 23 01/27/2023 CBC AUTO W DIFF eosinophil# 0.4 cell/ mcL 0-0.2 high Not Available [facility] ([facility]) [address], [place], [address], 01/27/2023 18:23:03 01/28/20 23 01/27/2023 CBC AUTO W DIFF basophil# 0.0 cell/ mcL 0.0-1. 0 Not Available [facility] ([facility]) [address] [place], [address], 01/27/2023 18:23:03 01/28/20 23 01/27/2023 CBC AUTO W DIFF immature gramulocytes # 0.08 K/uL Not Available [facility] ([facility]) [address] [facility], [place], [address], 01/27/2023 18:23:03 01/28/20 23 01/27/2023 CBC AUTO W DIFF nucleated red blood cells # 0.00 K/uL Not Available [facility] ([facility]) [address], [place], [address], 01/27/2023 18:23:03 01/28/20 23 01/27/2023 CBC AUTO W DIFF manual differential NO Not Available [facility] ([facility]) [address] [facility], [place], [address], 01/27/2023 18:23:03 01/28/20 23 01/29/2023 IGG IgG 482 mg/dL 586-16 02 low Perfo rmed at: [facility] [address] [place] [address] 126 Lab Direc tor: Galo lopez PhD, Phone : [phone] Not Available [facility] ([facility]) [address] [facility], [place], [address], 01/29/2023 08:20:09 01/28/20 23 01/31/2023 IGE IgE 80 IU/mL 6-495 Perfo rmed at: [facility] [facility] [address] [facility] [place] [id number] Lab Direc tor: Mary montes MD, Phone : [phone] Not Available [facility] ([facility]) [address] [facility], [place], [address], 01/31/2023 06:14:17 01/28/20 23 01/31/2023 ALLER GEN PROFI LE BAS D pteronyssinu s <0.10 kU/L class 0 Not Available [facility] ([facility]) [address] [facility], [place], [address], 01/31/2023 06:14:18 01/28/20 23 01/31/2023 ALLER GEN PROFI LE BAS D farinae mite <0.10 kU/L class 0 Not Available [facility] ([facility]) [address] [facility], [place], [address], 01/31/2023 06:14:18 09/19/20 23 01/31/2023 ALLER GEN PROFI LE BAS CAT hair/dander <0.10 kU/L class 0 Not Available [facility] ([facility]) [address] [place], [address], 01/31/2023 06:14:18 01/28/20 23 01/31/2023 ALLER GEN PROFI LE BAS dog hair/dander <0.10 kU/L class 0 Not Available [facility] ([facility]) [address] [place], [address], 01/31/2023 06:14:18 01/28/2001/31/2023 ALLER GEN PROFI LE BAS [id number] cladosporium herbarum <0.10 kU/L class 0 Not Available [facility] ([facility]) [address] [place], [address], 01/31/2023 06:14:18 01/28/20 23 01/31/2023 ALLER GEN PROFI LE BAS IgE 78 IU/mL 6-495 Not Available [facility] ([facility]) [address] [place], [address], 01/31/2023 06:14:18 01/28/20 23 01/31/2023 ALLER GEN PROFI LE BAS bermuda grass <0.10 kU/L class 0 Not Available [facility] ([facility]) [address] [place], [address], 01/31/2023 06:14:18 01/28/20 23 01/31/2023 ALLER GEN PROFI LE BAS cockroach, turkish <0.10 kU/L class 0 Not Available [facility] ([facility]) [address] [place], [address], 01/31/2023 06:14:18 01/28/20 23 01/31/2023 ALLER GEN PROFI LE BAS penicillium notatum <0.10 kU/L class 0 Not Available [facility] ([facility]) [address] [place], [address], 01/31/2023 06:14:18 01/28/20 23 01/31/2023 ALLER GEN PROFI LE BAS alternaria tenuis <0.10 kU/L class 0 Not Available [facility] ([facility]) [address] [place], [address], 01/31/2023 06:14:18 01/28/20 23 01/31/2023 ALLER GEN PROFI LE BAS maple/box elder <0.10 kU/L class 0 Not Available [facility] ([facility]) [address] [place], [address], 01/31/2023 06:14:18 01/28/20 23 01/31/2023 ALLER GEN PROFI LE BAS [id number]-[id number] greyson, white <0.10 kU/L class 0 Not Available [facility] ([facility]) [address] [place], [address], 01/31/2023 06:14:18 01/28/20 23 01/31/2023 ALLER GEN PROFI LE BAS ragweed, short/combo <0.10 kU/L class 0 Not Available [facility] ([facility]) [address] [place], [address], 01/31/2023 06:14:18 01/28/2001/31/2023 ALLER GEN PROFI LE BAS pigweed, rough <0.10 kU/L class 0 Not Available [facility] ([facility]) [address] [place], [address], 01/31/2023 06:14:18 01/28/20 23 01/31/2023 ALLER GEN PROFI LE BAS I631-CiJ cedar, mountain <0.10 kU/L class 0 Not Available [facility] ([facility]) [address] [place], [address], 01/31/2023 06:14:18 01/28/20 23 01/31/2023 ALLER GEN PROFI LE BAS J598-JnO sycamore, chilean <0.10 kU/L class 0 Not Available [facility] ([facility]) [address] [facility], [place], [address], 01/31/2023 06:14:18 01/28/20 23 01/31/2023 ALLER GEN PROFI LE BAS afumigat <0.10 kU/L class 0 Not Available [facility] ([facility]) [address] [facility], [place], [address], 01/31/2023 06:14:18 01/28/20 23 01/31/2023 ALLER GEN PROFI LE BAS I493-UsR birch,white <0.10 kU/L class 0 Not Available [facility] ([facility]) [address] [facility], [place], [address], 01/31/2023 06:14:18 01/28/20 23 01/31/2023 ALLER GEN PROFI LE BAS cottonwood tree,IgE <0.10 kU/L Not Available [facility] ([facility]) [address] [facility], [place], [address], 01/31/2023 06:14:18 01/28/20 23 01/31/2023 ALLER GEN PROFI LE BAS elm,chilean ,IgE <0.10 kU/L class 0 Not Available [facility] ([facility]) [address] [place], [address], 01/31/2023 06:14:18 01/28/20 23 01/31/2023 ALLER GEN PROFI LE BAS mouse urine <0.10 kU/L class 0 Perfo rmed at: [facility] [place] [facility] [address] [place] [address] Lab Direc tor: Mary montes MD, Phone : [phone] Not Available [facility] ([facility]) [address] [place], [address], 01/31/2023 06:14:18 01/28/20 23 01/31/2023 ALLER GEN PROFI LE BAS white mulberry,IgE <0.10 kU/L class 0 Not Available [facility] ([facility]) [address] [place], [address], 01/31/2023 06:14:18 01/28/20 23 01/31/2023 ALLER GEN PROFI LE BAS white oak,IgE <0.10 kU/L class 0 Not Available [facility] ([facility]) [address] [place], [address], 01/31/2023 06:14:18 01/28/20 23 01/31/2023 ALLER GEN PROFI LE BAS pecan, hickory <0.10 kU/L class 0 Not Available [facility] ([facility]) [address] [place], [address], 01/31/2023 06:14:18 01/28/20 23 01/31/2023 ALLER GEN PROFI LE BAS sheep sorrel(dock) ,IgE <0.10 kU/L class 0 Not Available [facility] ([facility]) [address] [place], [address], 01/31/2023 06:14:18 01/28/2001/31/2023 ALLER GEN PROFI LE BAS thistle, cayman islander <0.10 kU/L class 0 Not Available [facility] ([facility]) [address] [place], [address], 01/31/2023 06:14:18 01/28/20 23 01/31/2023 ALLER GEN PROFI LE BAS naveed grass,IgE <0.10 kU/L class 0 Not Available [facility] ([facility]) [address] [place], [address], 01/31/2023 06:14:18 01/28/20 23 01/31/2023 ALLER GEN PROFI LE BAS walnut french tree,IgE <0.10 kU/L class 0 Not Available [facility] ([facility]) [address] [facility], [place], [address], 01/31/2023 06:14:18 01/28/20 23 01/31/2023 ALLER GEN PROFI LE BAS class description Commen t . Level s of Speci fic IgE Class Descr iptio n of Class ----- ----- ----- ----- ----- -- ----- ----- ----- ----- ----- < 0.10 0 Negat anders 0.10 - 0.31 0/I Equiv ocal/ Low 0.32 - 0.55 I Low 0.56 - 1.40 II Moder ate 1.41 - 3.90 III High 3.91 - 19.00 IV Very High 19.01 - 100.0 0 V Very High >100. 00 Very High Not Available [facility] ([facility]) [address] [facility], [place], [address], 01/31/2023 06:14:18 02/13/20 23 02/12/2023 CT, chest , w/o contr ast [facility] [address] [place] [address] Phone: Fax: Name: ELOISA KATZ Exam Date: 023 : [birth year] Age 78 Gender : F Access ion: [id number] Physic cuate: RIVAS RUTH Facili ty: [facility] Facili ty HSV: Outpat ient Exam: CT CHEST W/O CT CHEST HISTOR Y: Recurr ent lung infect ions, acute cough, wheezi ng. COMPAR MELITON: None . TECHNI QUE: Axial CT withou t IV contra st admini strati on. This study was perfor med with techni ques to keep radiat ion doses as low as reason ably yue leon, (TAJ ). Indivi dualiz ed dose reduct ion techni ques using automa nahum exposu re contro l or adjust ment of mA and/or kV accord ing to the patien t's size were employ ed. FINDIN GS: There is asymme tric enlarg ement of the left thyroi d, which contai ns calcif icatio ns. There is a left thyroi d nodule measur ing 1.2 cm. Outpat ient ultras ound may be of benefi t. Heart size is enlarg ed. There is athero sclero sis. There is scatte red calcif ied residu a of old granul omatou s diseas e. No acute lung diseas e is presen t . There is basila r atelec tasis. No suspic ious nodule is identi fied. No pleura l or perica rdial effusi on is seen . No adenop athy or mass lesion is presen t. A large hiatal hernia is identi fied with an intrat horaci c stomac h. No acute osseou s change s are identi fied. There is scolio sis in the spine. CONCLU SYBIL: Multip le chroni c change s. No acute proces s. The films were review ed, interp reted, and dictat ed by Dr. Heard Transc ribed by Brent Isaacs PA-C Dictat ed By: JAZIEL HEARD Transc ribed By: Jaziel Heard Transc ribed On: 3:26 PM Electr onical ly signed by: JAZIEL HEARD Thank you for referr masoud KATZ ELOISA to [facility] Hospit [facility]. Legall y authen ticate d by POPE JAZIEL Pate 2022-05 15:26: 07 CC'ed Logic: Orderi ng Provid er: FLORY SMITH Attend ing Provid er: FLORY SMITH Referr ing Provid er: FLORY SMITH Admitt ing Provid er: FLORY SMITH [facility] [address] [facility], [place], [address], 02/12/2023 16:17:06 Result Notes Documentation Provider Name and Address Organization Details Recorded Time Ct, Chest, W/o Contrast : [facility] [address] [place] [address] Name: ELOISA KATZ Exam Date: 02/12/2023 : 1945 Age 78 Gender: F Physician: RIVAS RUTH Facility: [facility] Facility HSV: Outpatient Exam: CT CHEST W/O CT CHEST HISTORY: Recurrent lung infections, acute cough, wheezing. COMPARISON: None . TECHNIQUE: Axial CT without IV contrast administration. This study was performed with techniques to keep radiation doses as low as reasonably achievable, (ALARA). Individualized dose reduction techniques using automated exposure control or adjustment of mA and/or kV according to the patient's size were employed. FINDINGS: There is asymmetric enlargement of the left thyroid, which contains calcifications. There is a left thyroid nodule measuring 1.2 cm. Outpatient ultrasound may be of benefit. Heart size is enlarged. There is atherosclerosis. There is scattered calcified residua of old granulomatous disease. No acute lung disease is present . There is basilar atelectasis. No suspicious nodule is identified. No pleural or pericardial effusion is seen . No adenopathy or mass lesion is present. A large hiatal hernia is identified with an intrathoracic stomach. No acute osseous changes are identified. There is scoliosis in the spine. CONCLUSION: Multiple chronic changes. No acute process. The films were reviewed, interpreted, and dictated by Dr. Heard Transcribed by Radha Isaacs PA-C Dictated By: JAZIEL HEARD Transcribed By: Jaziel Heard Transcribed On: 02/12/2023 3:26 PM Electronically signed by: JAZIEL HEARD 02/12/2023 Thank you for referring ELOISA KATZ to [facility]. Legally authenticated by POPE JAZIEL Pate 2023-02-12 15:26:07 CC'ed Logic: Ordering Provider: FLORY SMITH Attending Provider: FLORY SMITH Referring Provider: FLORY SMITH Admitting Provider: FLORY Ruth MD [address], [place], [address], [facility] [place] 02/12/2023 16:17:06 Problems Name Problem SNOMED Code Status Onset Date Resolution Date Notes Provider Name and Address Organization Details Recorded Time Cough variant asthma 306993559 Active 023 Rivas Ruth MD [address], [place], [address] , [facility] [place] 3 15:49:47 Recurrent bacterial infection 831397226 Active 023 Rivas Ruth MD [address], [place], [address] , [facility] [place] 3 15:51:23 Dyspnea on exertion 42041560 Active 023 Rivas Ruth MD [address], [place], [address] , [facility] [place] 3 15:52:15 Problem Notes None recorded. Medical Equipment None Reported. Medications Name Sig Start Date Stop Date Status Note LastModified by Organization Details LastModified Time azithromycin 250 mg tablet active Not Available Not Available Not Available pravastatin 40 mg tablet active Not Available Not Available Not Available meloxicam 15 mg tablet active Not Available Not Available No t Available ondansetron HCl 4 mg tablet active Not Available Not Available Not Available famotidine 40 mg tablet active Not Available Not Available Not Available amlodipine 5 mg tablet TAKE 1 TABLET BY MOUTH ONCE DAILY FOR 14 DAYS active Not Available Not Available No t Available tramadol 50 mg tablet active Not Available Not Available No t Available prednisone 10 mg tablets in a dose pack FOLLOW PACKAGE DIRECTIONS active Not Available Not Available N ot Available cefadroxil 500 mg capsule active Not Available Not Available Not Available losartan 100 mg-hydrochlo rothiazide 25 mg tablet active Not Available Not Available Not Available montelukast 10 mg tablet active Not Available Not Available Not Available levofloxacin 500 mg tablet TAKE 1 TABLET BY MOUTH ONCE DAILY FOR 10 DAYS active Not Available Not Available No t Available albuterol sulfate HFA 90 mcg/actuatio n aerosol inhaler Inhale 2 puffs every 4 hours by inhalation route for 30 days. active Not Available Not Available No t Available amoxicillin 875 mg-potassium clavulanate 125 mg tablet TAKE 1 TABLET BY MOUTH TWICE DAILY FOR 7 DAYS active Not Available Not Available No t Available Breztri Aerosphere 160 mcg-9mcg-4.8 mcg/actuatio n HFA aerosol inhaler active Not Available Not Available Not Available Vitals Date Recorded Body height Body weight Body mass index (BMI) Body temperature Oxygen saturation Oxygen saturation in Arterial blood by Pulse oximetry Heart rate Systolic And Diastolic Provider Name and Address Organization Details Last Updated DateTime 3 170.18 cm 46312.9 9 g 33 kg/m2 96.2 [degF] 97 % 97 % 81 /min 143/85 mm[Hg] Chris ramirez [facility] [place] 3 15:36:49 Social History None recorded. Functional Status None recorded. Mental Status None recorded. Family History Nothing Reported. Medical History No medical history recorded. Gynecological HistoryNo gynecological history recorded. Obstetrics History GPAL:G 0 P 0 0 0 0 Past Encounters Encounter ID Performer Location Encounter Start Date Encounter Closed Date Diagnosis/Indication Diagnosis SNOMED-CT Code Diagnosis ICD10 Code Diagnosis IMO Codes Diagnosis Note [id number] Rivas Ruth MD [facility] [address] [facility] [place] [address] 01/27/2023 15:16:38 01/27/2023 15:54:42 Cough variant asthma 708746129 J45.991 Spirometry done in the office today showed very poor effort without clear evidence of obstructio n so will arrange for the patient to have a full PFT with [facility]CO.Will check workup to evaluate for eosinophil ia, immunoglob ulins and allergies. Patient instructed to continue with the use of Breztri for now and will adjust according to above testing results as I am suspecting an underlying asthmatic component. Patient instructed to call if there is any new symptoms. Recurrent bacterial infection 993826322 A49.9 Will check immunoglob ulins to rule out underlying immunodefi ciency.Francis l check CT of the chest without contrast given patient history of recurrent infections and to evaluate the need for possible fiberoptic bronchosco py diagnostic /therapeut ic. Dyspnea on exertion 9342 5006 R06.09 Patient recommende d to exercise as tolerated and will arrange for her to have Samantha to use on a p.r.n. basis. Health Concerns Section Related Observation LastModified by Organization Detai ls LastModified Time None Recorded Concern Status LastModified by Organization Details LastModified Time None Recorded Advance Directives Directive None Recorded Payers Insurance Date Sequence Insurance Name Policy Number Policy Rowley Covered Member ID Rowley Member ID Guarantor Name 02/22/[address] [facility] (MEDICARE REPLACEMENT/A DVANTAGE - PPO) [id number] Eloisa aKtz [id number] Eloisa Kazt Notes Date Note Type Note Provider Name and Address Organization Details Recorded Time 01/27/2023 text/html Patient presents to the office today for initial evaluation. Patient states that she is having episodes of recurrent bronchitis requiring the use of antibiotics about 6 times per year. Also she had some increase in shortness breath at rest and dyspnea on exertion. Having significant cough and thick sputum production. No fever, chills or diaphoresis. Had wheezing. No hemoptysis. No chest pain, angina or palpitation. No PND or orthopnea. Patient denies significant change in her weight or appetite. Patient denies history of smoking or environmental exposure. Patient once following up with a surgery nurse in [place] and now wants to transfer care. Rivas Ruth MD [address] [facility], [place], [address], [facility] [place] [facility] [place] 01/27/2023 15:53:25 OBGyn Episode No OBEpisode recorded.
--- OUTSIDE RECORDS SUMMARY | 2025-03-02 15:35 | XMS_ITS | Clinical Summary ---
Author Organization Healthcare Address [address] [place] [address] Care Team Providers Care Music Specialist Name Role Phone Kirsty Morales Primary Care Provider [phone] Social History Tobacco Use Types Packs/Day Years [...] 03/23/2025 3:30 PM EST Ovarian Cancer Screening [facility] Gynecology [address] [facility] [place] [address] Health Maintenance Due Date Last Done Comments [...] or (1 - 1-dose 75+ series) 2022 [id number] Vaccine (3 - season) 2025 07/04/2020, 06/06/2020 UKY-Influenza Vaccine (#1) 01/09/202503/05, 02/17/2023, [...] patient's age to complete this topic Insurance [facility] MEDICARE Care Teams Music Specialist Relationship Specialty Start Date End Date Kirsty Morales PA [address] [place] [address] [facility] [place] [id number] PCP - General 10/10/21
== END 2025-03-02 23:59 | disposition home or self-care (01) ==
LOC: RAD 15:17
PROVIDERS: PCP Nurse Practitioner Family; Visit Provider Nurse Practitioner
DX: E04.2 Nontoxic multinodular goiter (principal)
CPT/HCPCS: 76536

== ENCOUNTER 2025-03-27 15:00 | Outpatient (RCR) | payer MEDICARE, SELFPAY ==
--- NOTE | 2025-03-14 16:02 | HMH.PTOPEV ---
PT Evaluation Rehab PT Outpatient Evaluation Start: 03/14/25 15:47 Freq: Status: Active Protocol: Document 03/14/25 15:48 PHORNE (Rec: 03/14/25 16:01 PHORNE [id number]) E-signed By Tino Ortiz, PT Outpatient Therapy Subjective History Subjective History This is the initial PT eval for Eloisa Katz, 80 yowf who presents with c/o dizziness and intermittent vertigo for > 10 yrs overall, but worse in the past 6 mos. She reports she take meclizine OTC 3 x/day to manage her symptoms. She reports symptoms occur at all times of day and night and in all positions without warning. She reports hx of benign thyroid nodules, HTN controlled with medication, sinus and allergy issues year round, chronic neck pain with daily headache, recent cataract surgery. Chief Complaint Other Symptom Type Other Symptoms Relieved By Rest/Positioning,OTC Meds Symptoms Aggravated Physical Activity,Twisting By Prior Functional None Limitations Current Functional Housework,Driving,Sleeping,Recreation Activity,Walking Limitations Symptom Description Intermittent Dynamic Gait Index Test Protocol Gait Level Surface Moderate Impairement Query Text: Instructions: Walk at your normal speed from here to the next tamy (20'). Grading: Tamy the lowest category that applies. Change in Gait Speed Moderate Impairment Query Text: Instructions: Begin walking at your normal pace (for 5') , when I tell you go , walk as fast as you can (for 5'). When I tell you slow , walk as slowly as you can ( for 5'). Grading: Tamy the lowest category that applies. Gait with Horizontal Moderate Impairment Head Turns Query Text: Instructions: Begin walking at your normal pace. When I tell you to look right , keep walking straight, but turn you head to the right. Keep looking to the right unit I tell you look left , then keep walking straight and turn your head to the left. Keep your head to the left until I tell you look straight , then keep walking straight, but return you head to the center. Grading: Tamy the lowest category that applies. Gait with Vertical Moderate Impairment Head Turns Query Text: Instructions: Begin walking at your normal pace. When I tell you to look up , keep walking staight, but tip your head up. Keep looking up until I tell you to look down , then keep walking straight and tip your head down. Keep your head down until I tell you look straight , then keep walking straight, but return your head to the center. Grading: Tamy the lowest category that applies. Gait and Pivot Turn Moderate Impairment Query Text: Instructions: Begin walking at your normal pace. When I tell you turn and stop , turn as quickly as you can to face the opposite direction and stop. Grading: Tamy the lowest category that applies. Step Over Obstacle Moderate Impairment Query Text: Instructions: Begin walking at your normal speed. When you come to the shoebox, step over it, not around it and keep walking. Grading: Tamy the lowest category that applies. Step Around Mild Impairment Obstacles Query Text: Instructions: Begin walking at normal speed. When you come to the first cone (about 6' away) , walk around the right side of it. When you come to the second cone (6' past first cone), walk around it to the left. Grading: Tamy the lowest category that applies. Steps Moderate Impairment Query Text: Instructions: Walk up these stairs as you would at home. At the top, turn around and walk down . Grading: Tamy the lowest category that applies. Scoring Dynamic Gait Index 9 Score Vertigo Eval Oculomotor Examination Smooth Pursuits: Normal Saccades: Normal Gaze-Evoked Absent Nystagmus: Vergence: Normal Comment: Pt reports increased symptoms of dizziness with GEN testing and VOR cancellation testing. No nystagmus noted with either test. Vestibular-Ocular Reflex (VOR) VOR Horizontal: Intact VOR Vertical: Intact Comment: Symptoms reported, but no nystagmus noted. Pt has taken Meclizine today. Motion Sensitivity Testing Symptoms Provoked By Turning head quickly : Positional Testing Orrum-Hallpike Right: Negative Estefania-Hallpike Left: Negative Roll Test Right: Negative Roll Test Left: Negative Comment: No nystagmus with any testing, but symptoms worse reported with all positions. Balance Testing TUG (sec.): 26 Gait Assessment Assistive Device: Cane Gait Quality Unsteady Outpatient Therapy Assessment Impairments Problems/ Impaired Walking,Impaired Driving,Impaired Household Impairmments Care,Impaired Recreational Activities,Impaired Balance, Impaired TUG Time,Impaired Self Care/Self Management Prognosis Rehab Potential Good Comment Skilled therapy is indicated to improve balance, decrease c/o dizziness, and improve ability to ambulate safely oin order to aid improvement in overall QOL. Clinical Impression Consistent with Yes Diagnosis PT Patient Goals PT Patient Goals PT Short Term In 2 wks pt will complete these goals in order to aid Patient Goals improvement in function specifically with all ADLs: 1) Increase DGI to 11 or better 2) decrease c/o headache to every other day 3) improve TUG to 23 sec or less 4) Report dizziness vertigo lasting 30 min or less each episode PT [employer] Patient In 4 wks pt will complete these goals in order to aid Goals improvement in function specifically with all ADLs: 1) Increase DGI to 15 or better 2) decrease c/o headache to every 3 days per week 3) improve TUG to 20 sec or less 4) Report dizziness vertigo lasting 15 min or less each episode Outpatient Therapy Plan of Care Treatment Plan May Include Therapeutic Exercise Yes Including Home Exercise Program Manual Therapy Yes Techniques Neuromuscular Re- Yes education Therapeutic Yes Activities to Return to Previous Functional/Work Level Gait Training Yes ADL/Self Care Yes Education Eval/Re-Eval Yes Frequency Times per week 2 Duration Number of Weeks 4 Addendums This patient is a No candidate for social or vocational rehab ? Patient/Guardian Yes verbally acknowledges understanding of treatment program and consents to further treatment? Patient/Guardian Yes verbally acknowledges understanding of diagnosis, prognosis and goals for treatment? Eval Complexity PT Charges 43262 - High Complexity Shoulder/Elbow Eval Shoulder Objective Measurements Elbow Objective Measurements PHYSICIAN CERTIFICATION: I certify the specified therapy services for Eloisa Katz are required, authorized, and reviewed every 30 days.
== END 2025-03-27 23:59 | disposition home or self-care (01) ==
LOC: PT 15:00
PROVIDERS: Visit Provider Nurse Practitioner Family
DX: H69.90 Unspecified Eustachian tube disorder, unspecified ear
CPT/HCPCS: 97110; 97112; 97140; 97163